=== PATIENT | female | born 1935 | race Two or more races ===

== ENCOUNTER 2020-10-04 09:09 | Outpatient (REF) | payer OTHER, SELFPAY ==
[2020-10-04 10:13] LABS: MANUAL DIFF FLAG NO
[2020-10-04 10:37] LABS: Basophils Percent Auto 0.4 % (0-2); Eosinophils Absolute Auto 0.1 X10*3/uL (0.0-0.4); Eosinophils Percent Auto 1.4 % (0-4); Hematocrit 44.3 % (37-47); Hemoglobin 14.5 g/dl (12.0-16.0); Imm Gran Abs Auto 0.04 X10*3/uL (0.00-0.03); Imm Gran Pct Auto 0.4 % (0.0-0.4); Lymphocytes Absolute Auto 1.9 X10*3/uL (1.2-4.9); Mean Corpuscular HGB Conc 32.7 g/dl (31.0-35.0); Mean Corpuscular Hemoglobin 28.1 pg (27.0-33.0); Mean Corpuscular Volume 85.9 fL (80-98); Mean Platelet Volume 9.4 fL (9.4-12.3); Monocytes Absolute Auto 0.7 X10*3/uL (0.1-1.2); Monocytes Percent Auto 7.9 % (2-11); Neutrophils Absolute Auto 6.6 X10*3/uL (2.0-8.3); Neutrophils Percent Auto 69.9 % (45-73); Platelet Count 367 X10*3/uL (160-400); Red Blood Count 5.16 X10*6/uL (4.20-5.50); Red Cell Distribution Width 13.2 % (11.0-16.0); White Blood Count 9.4 X10*3/uL (4.8-10.8)
[2020-10-04 10:49] LABS: Anion Gap 13 (12-20); Blood Urea Nitrogen 7 mg/dL (9-16); Calcium 9.3 mg/dL (8.4-10.2); Carbon Dioxide 30 mmol/L (22-29); Chloride 96 mmol/L (96-108); Cholesterol 167 mg/dL; Estimated Glomerular Filt Rate > 60; Glucose Fasting 104 mg/dL (60-99); HDL Cholesterol 77 mg/dL; LDL Cholesterol Calculated 75 mg/dl; Potassium 4.3 mmol/l (3.3-5.1); Sodium 135 mmol/L (135-145); Triglycerides 77 mg/dL
[2020-10-04 14:06] LABS: Reflex LDLD? No
== END 2020-10-04 09:10 | disposition home or self-care (01) ==
LOC: HO.LAB 09:09
PROVIDERS: Visit Provider Nurse Practitioner Family
DX: F41.9 Anxiety disorder, unspecified (principal)
CPT/HCPCS: 36415; 80048; 80061; 85025

== ENCOUNTER 2021-07-23 10:39 | Outpatient (REF) | payer OTHER, SELFPAY ==
[2021-07-23 11:36] LABS: Hematocrit 41.8 % (37-47); Hemoglobin 13.5 g/dl (12.0-16.0); Mean Corpuscular HGB Conc 32.3 g/dl (31.0-35.0); Mean Corpuscular Hemoglobin 27.4 pg (27.0-33.0); Mean Platelet Volume 9.7 fL (9.4-12.3); Platelet Count 326 X10*3/uL (160-400); Red Blood Count 4.92 X10*6/uL (4.20-5.50); Red Cell Distribution Width 12.7 % (11.0-16.0); White Blood Count 8.5 X10*3/uL (4.8-10.8)
[2021-07-23 12:01] LABS: Alanine Aminotransferase 21 U/L (0-31); Albumin Level 4.2 g/dL (3.5-5.0); Alkaline Phosphatase 154 U/L (39-117); Anion Gap 12 (12-20); Aspartate Amino Transferase 23 U/L (5-31); Bilirubin Total 0.4 mg/dL (0.0-1.0); Blood Urea Nitrogen 6 mg/dL (9-16); Calcium 9.6 mg/dL (8.4-10.2); Carbon Dioxide 30 mmol/L (22-29); Chloride 99 mmol/L (96-108); Cholesterol 144 mg/dL; Estimated Glomerular Filt Rate > 60; Glucose Fasting 125 mg/dL (60-99); HDL Cholesterol 66 mg/dL; LDL Cholesterol Calculated 67 mg/dl; Potassium 4.7 mmol/L (3.3-5.1); Sodium 136 mmol/L (135-145); Total Protein 7.9 g/dL (6.5-8.0); Triglycerides 55 mg/dL
[2021-07-23 12:02] LABS: B Type Natriuretic Peptide 51 pg/mL (<100)
[2021-07-23 12:21] LABS: TSH reflex Free T4 0.75 uIU/mL (0.32-4.0)
== END 2021-07-23 10:40 | disposition home or self-care (01) ==
LOC: HO.LAB 10:39
PROVIDERS: Visit Provider Nurse Practitioner Family
DX: F32.9 Major depressive disorder, single episode, unspecified (principal); E78.00 Pure hypercholesterolemia, unspecified; F41.9 Anxiety disorder, unspecified; I15.8 Other secondary hypertension; R60.0 Localized edema
CPT/HCPCS: 36415; 80053; 80061; 83880; 84443; 85027

== ENCOUNTER 2022-07-16 10:17 | Outpatient (REF) | payer OTHER, SELFPAY ==
--- NOTE | ~2022-07-16 | MR_ITS ---
EXAMINATION: MRI OF THE BRAIN WITHOUT CONTRAST CLINICAL INFORMATION: 87-year-old with mental status changes. Unspecified mental disorder due to known physiologic condition. COMPARISON: None TECHNIQUE: Multiplanar multisequence MR imaging of the brain was done without IV contrast. FINDINGS: BRAIN VOLUME: There is mild generalized diffuse brain parenchymal volume loss. Suspect disproportionate left hippocampal and entorhinal cortex volume loss within the limitations of a qualitative assessment. This can be further assessed with quantitative brain volumetrics if clinically warranted. STRUCTURAL: No malformations. BRAIN AND MENINGES: DWI sequence demonstrates no restricted diffusion to suggest acute or subacute cerebral ischemia. Extensive confluent subcortical and deeper periventricular white matter T2 hyperintensity noted which is mildly T1 hypointense in both cerebral hemispheres with scattered smaller patchy foci of FLAIR/T2 hyperintensity in the subcortical and deeper white matter of both cerebral hemispheres, suggesting subcortical arteriosclerotic encephalopathy. Patchy T2 hyperintensity seen on both sides of the caty consistent with chronic ischemic microangiopathy. Gradient refocused imaging demonstrates no abnormal magnetic susceptibility artifact to suggest hemorrhage, hemosiderin staining or abnormal mineralization. No extra-axial fluid collections, significant space-occupying process or mass effect. VENTRICLES AND SUBARACHNOID SPACES: The ventricular system and subarachnoid spaces are consistent with volume loss without hydrocephalus. ORBITAL STRUCTURES: The visualized orbital structures are grossly unremarkable within the limitations of the study. VASCULAR: Signal voids are noted in the visualized major intracranial vessels. OSSEOUS STRUCTURES, SINUSES/MASTOIDS, EXTRACRANIAL SOFT TISSUES: Nonspecific retained secretions are seen in the mastoids bilaterally left more than right, with mild mucosal thickening in the left maxillary sinus and ethmoid complex. Bony structures appear grossly intact. 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 There is mild anterolisthesis at C3-C4 and C4-C5. MR/MR head/brain wo con IMPRESSION: 1. Mild generalized diffuse brain parenchymal volume loss with suggestion of disproportionate left mesial temporal lobe volume loss which can be confirmed with quantitative brain volumetrics if clinically warranted. 2. 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 3. Small mastoid effusions, left more than right and some mucosal thickening in the left maxillary sinus and ethmoid complex. 4. Upper cervical degenerative changes as discussed above and bilateral TMJ arthropathy.
== END 2022-07-16 10:18 | disposition home or self-care (01) ==
LOC: HO.MRI 10:17
PROVIDERS: Visit Provider Psychiatry & Neurology Neurology
DX: F09 Unspecified mental disorder due to known physiological condition (principal); R26.9 Unspecified abnormalities of gait and mobility
CPT/HCPCS: 70551

== ENCOUNTER 2023-05-29 08:29 | Outpatient (AMB) | payer MEDICARE, SELFPAY ==
--- NOTE | 2023-05-29 08:38 | A.OFFPC_ITS ---
Vital Signs 05/29/23 08:40 Height 5 ft 2 in Weight 161 lb 2 oz BMI 29.5 BP 122/68 Blood Pressure Location Lt brachial Position Sitting Pulse 67 Pulse Source Pulse Oximeter Pulse Oximetry (%) 97 Oxygen Delivery Method Room Air Intake Visit Reasons: pe Intake Note: Patient is here today for a physical. Court Recorder Required: Yes Court Recorder Language: Credit Risk Modeler Name: Niya (grand daughter) Information Interpreted: non-clinical & clinical Ada Accommodation Consultant: Present Accompanied by: Grand Child Allergies aspirin Allergy (Intermediate, Verified 05/29/23 08:39) itchy dog dander Allergy (Unknown, Verified 05/29/23 08:39) unknown penicillin G Allergy (Unknown, Verified 05/29/23 08:39) Unknown Seasonale Allergy (Unknown, Uncoded 05/29/23 08:39) Unknown Medication List - Last Reconciled 05/29/23 by Cheikh Coyne MD atorvastatin 10 mg PO DAILY buspirone 10 mg PO BID diphenhydramine HCl 25 mg PO DAILY 30 days lisinopril 10 mg PO DAILY lorazepam 1 mg PO DAILY PRN 14 days erfnvtjjthnu-hnbdxapp-yjeuhc 1 tab PO DAILY 2 months propranolol 10 mg PO BID sertraline 25 mg PO DAILY Tobacco use date assessed: 05/29/23 Fall risk assessment: No Falls in past year Last assessed Fall Risk: 05/29/23 Dental Screening Dental Screen Date: 05/29/23 HPI pe HPI Details 88-year-old female presents to the office for a physical exam. She is accompanied by her granddaughter. Granddaughter is translating. Patient continues to have gait issues. She still insists on walking without any assistance or using a cane. She has not had any fall in the last year. However there have been near falls. She is compliant with all medications and reporting no side effects. [facility] Medical History (Updated 05/29/23 @ 09:11 by Cheikh Coyne MD) Anxiety Depression High cholesterol Hypertension Surgical History History of hysterectomy Family History Father No problems noted. Mother No problems noted. Brother No problems noted. Family/Other Mental health disorder Social History Housing: House Alcohol intake: never Patient Tobacco Use Status: Never used Tobacco e-Cigarette/Vaping Use: Never Used Second Hand Smoke Exposure: No service: No Current occupational status: retired Cognitive needs: No Hearing needs: Yes (hearing aide) Vision needs: Yes Questionnaire Thrive Questionnaire Date Thrive assessed: 03/20/23 BARON-7 AMB Questionnaire BARON-7 Date BARON - 7 assessed: 03/20/23 Source: Developed by Drs. Price Tanner, Alma Esquivel, Sukhjinder Clark and colleagues, with an educational bettie from [employer]. Physical exam (Primary Care) Vital Signs: Last Vital Signs Pulse 67 05/29/23 08:40 BP 122/68 05/29/23 08:40 Pulse Ox 97 05/29/23 08:40 Oxygen Delivery Method Room Air 05/29/23 08:40 Care Plan Goal for BP management: Blood pressure is in range. BMI result Body Mass Index 29.5 Tobacco/Smoking Status: Tobacco use Status Tobacco use date assessed 05/29/23 05/29/23 08:46 Patient Tobacco Use Status Never used Tobacco 05/29/23 08:46 e-Cigarette/Vaping Use Never Used 05/29/23 08:46 Thrive Assessment: Date of Thrive Assessment Date Thrive assessed 03/20/23 05/29/23 08:46 Advance Care Planning discussion: Exists, not on file Date of discussion: 05/29/23 Who was present: Patient's granddaughter Sanna. Forms completed: Health Care Proxy and MOLST Time spent: 1-15 minutes, not on file Actual minutes spent: 5 Const General: cooperative, healthy appearing and comfortable HENMT Head: Yes normal to inspection and Yes atraumatic Eyes General: appearance normal, both eyes and all related structures Neck Neck: Yes normal visual inspection and Yes full ROM Chest Chest palpation & inspection: normal inspection of the chest Resp Effort & Inspection: normal respiratory effort Auscultation: clear to auscultation bilaterally Cardio Jugular venous distension: no JVD Palpation: normal PMI Rate: regular rate Heart sounds: S1 normal heart sound present and S2 normal heart sound present GI Palpation (GI): Soft to palpation and No hepatosplenomegaly present Extrem General: Yes normal to inspection and Yes full ROM Assessment and Plan Assessment & Plan (1) Gait disturbance: Comment: multifactorial Code(s): R26.9 - Unspecified abnormalities of gait and mobility (2) Anxiety: Code(s): F41.9 - Anxiety disorder, unspecified Plan: Condition is stable. Continue current medications. (3) Hypertension: Code(s): I10 - Essential (primary) hypertension Qualifiers: Hypertension type: other secondary hypertension Qualified Code(s): I15.8 - Other secondary hypertension Plan: Pressure is stable. Continue medications. (4) High cholesterol: Code(s): E78.00 - Pure hypercholesterolemia, unspecified Plan: Blood work has been drawn. Will call with results. (5) Annual physical exam: Code(s): Z00.00 - Encounter for general adult medical examination without abnormal findings Orders: Orders Basic Metabolic Panel Today E78.00 - Pure hypercholesterolemia, unspecified, F41.9 - Anxiety disorder, unspecified, I10 - Essential (primary) hypertension, R26.9 - Unspecified abnormalities of gait and mobility Lipid Panel Today E78.00 - Pure hypercholesterolemia, unspecified, F41.9 - Anxiety disorder, unspecified, I10 - Essential (primary) hypertension, R26.9 - Unspecified abnormalities of gait and mobility Liver Panel Today E78.00 - Pure hypercholesterolemia, unspecified, F41.9 - Anxie ty disorder, unspecified, I10 - Essential (primary) hypertension, R26.9 - Unspecified abnormalities of gait and mobility Thyroid Stimulating Hormone Today E78.00 - Pure hypercholesterolemia, unspecified, F41.9 - Anxiety disorder, unspecified, I10 - Essential (primary) hypertension, R26.9 - Unspecified abnormalities of gait and mobility Complete Blood Count no Diff Today E78.00 - Pure hypercholesterolemia, unspecified, F41.9 - Anxiety disorder, unspecified, I10 - Essential (primary) hypertension, R26.9 - Unspecified abnormalities of gait and mobility UA and rflx microscopic Today E78.00 - Pure hypercholesterolemia, unspecified, F41.9 - Anxiety disorder, unspecified, I10 - Essential (primary) hypertension, R26.9 - Unspecified abnormalities of gait and mobility Coding Level of Care Code Est Pt Prev Care >65y(09392) Diagnoses Gait disturbance R26.9 Anxiety F41.9 Hypertension I15.8 Hypertension type: other secondary hypertension High cholesterol E78.00 Annual physical exam Z00.00 Additional Codes Vital Signs *Quality* - Advance Care Planning discussion: Exists, not on file ([id number]) Vital Signs *Quality* - Time spent: 1-15 minutes, not on file ([id number])
[2023-05-29 08:40] VITALS: BP 122/68; PULSE 67; O2SAT 97; BMI 29.5
== END 2023-05-29 09:02 | disposition home or self-care (01) ==
PROVIDERS: PCP Internal Medicine; Visit Provider Internal Medicine
DX: R26.9 Unspecified abnormalities of gait and mobility (principal); F41.9 Anxiety disorder, unspecified; I15.8 Other secondary hypertension; E78.00 Pure hypercholesterolemia, unspecified; Z00.00 Encounter for general adult medical examination without abnormal findings
CPT/HCPCS: 1123F; 1124F; 99397

== ENCOUNTER 2023-05-29 09:21 | Outpatient (REF) | payer OTHER, MEDICARE, MEDICAID, SELFPAY ==
[2023-05-29 10:22] LABS: Hematocrit 41.3 % (37.0-47.0); Hemoglobin 13.4 g/dl (12.0-16.0); Mean Corpuscular HGB Conc 32.4 g/dl (31.0-35.0); Mean Corpuscular Hemoglobin 27.3 pg (27.0-33.0); Mean Corpuscular Volume 84.1 fL (80.0-98.0); Mean Platelet Volume 9.8 fL (9.4-12.3); Platelet Count 265 X10*3/uL (160-400); Red Blood Count 4.91 X10*6/uL (4.20-5.50); Red Cell Distribution Width 12.9 % (11.0-16.0); White Blood Count 8.2 X10*3/uL (4.8-10.8)
[2023-05-29 10:47] LABS: Alanine Aminotransferase 21 U/L (0-31); Albumin Level 4.2 g/dL (3.5-5.0); Alkaline Phosphatase 137 U/L (39-117); Anion Gap 11 (12-20); Aspartate Amino Transferase 26 U/L (5-31); Bilirubin Direct 0.3 mg/dL (0.0-0.5); Bilirubin Total 0.6 mg/dL (0.0-1.0); Blood Urea Nitrogen 12 mg/dL (9-16); Calcium 10.1 mg/dL (8.4-10.2); Carbon Dioxide 31 mmol/L (22-29); Chloride 99 mmol/L (96-108); Cholesterol 141 mg/dL; Estimated Glomerular Filt Rate > 60; Glucose Random 99 mg/dL (60-115); HDL Cholesterol 74 mg/dL; LDL Cholesterol Calculated 55 mg/dl; Potassium 4.6 mmol/L (3.3-5.1); Sodium 136 mmol/L (135-145); Total Protein 8.2 g/dL (6.5-8.0); Triglycerides 61 mg/dL
[2023-05-29 10:54] LABS: Appearance Urine Clear; Color Urine Yellow; Glucose Urine UA Negative (Negative); Leukocyte Esterase Urine Large (3+) (Negative); Nitrite Urine Negative (Negative); UMIC TRIGGER UA YES; Urine Blood Small (1+) (Negative); Urine Ketones Negative (Negative); Urine Protein Negative (Neg-Trace)
[2023-05-29 10:57] LABS: Bacteria Urine None Seen (None Seen); Hyaline Casts Urine 0-2 /LPF (0-2)
[2023-05-29 11:05] LABS: Thyroid Stimulating Hormone 0.72 uIU/mL (0.32-4.0)
== END 2023-05-29 09:22 | disposition home or self-care (01) ==
LOC: HO.LAB 09:21
PROVIDERS: PCP Internal Medicine; Visit Provider Internal Medicine
DX: E78.00 Pure hypercholesterolemia, unspecified (principal); F41.9 Anxiety disorder, unspecified; I10 Essential (primary) hypertension; R26.9 Unspecified abnormalities of gait and mobility
CPT/HCPCS: 36415; 80048; 80061; 80076; 81001; 84443; 85027

== ENCOUNTER 2023-08-14 08:09 | Outpatient (AMB) | payer MEDICARE, MEDICAID, SELFPAY ==
[2023-08-14 08:10] VITALS: BP 154/82; PULSE 66; O2SAT 98; BMI 30.5
--- NOTE | 2023-08-14 08:10 | A.OFFPC_ITS ---
Vital Signs 08/14/23 08:10 Height 5 ft 2 in Weight 167 lb BMI 30.5 BP 154/82 H Blood Pressure Location Lt brachial Position Sitting Pulse 66 Pulse Source Pulse Oximeter Pulse Oximetry (%) 98 Oxygen Delivery Method Room Air Intake Visit Reasons: Anxiety follow-up, Cough, SOB Allergies aspirin Allergy (Intermediate, Verified 08/14/23 08:39) itchy dog dander Allergy (Unknown, Verified 08/14/23 08:39) unknown penicillin G Allergy (Unknown, Verified 08/14/23 08:39) Unknown Seasonale Allergy (Unknown, Uncoded 08/14/23 08:39) Unknown Medication List - Last Reconciled 08/14/23 by Cheikh Coyne MD atorvastatin 10 mg PO DAILY buspirone 10 mg PO BID diphenhydramine HCl 25 mg PO DAILY 30 days lisinopril 10 mg PO DAILY lorazepam 1 mg PO DAILY PRN 14 days mieghyvadfkf-ykrqynff-rbdwbk 1 tab PO DAILY 2 months propranolol 10 mg PO BID sertraline 25 mg PO DAILY Tobacco use date assessed: 07/31/23 Fall risk assessment: No Falls in past year Last assessed Fall Risk: 08/14/23 Dental Screening Dental Screen Date: 08/14/23 Did you have a dental visit in the last 12 months?: No Did you have a dental problem in the last 6 months where you did not have access to dental care?: No Was dental information given to patient?: No HPI Anxiety follow-up HPI Details 88-year-old female presents to the offic e to discuss her chronic medical conditions. She is accompanied by a family member. The family member reports that the patient has been coughing and bringing up yellow to green sputum. She is also having some shortness of breath in the past few days. No fevers or chills. No nausea or vomiting. Continues to have some anxiety issues. Patient has baseline dementia. Able to function and do activities of daily living. Patient needs to be reminded regarding showers. She is continent to urine and feces. Able to dress on her own. She she is able to cook and put on the gas stove independently. No history of falls. [facility] Medical History (Updated 08/14/23 @ 08:43 by Cheikh Coyne MD) Anxiety High cholesterol Hypertension Depression Surgical History History of hysterectomy Family History Father No problems noted. Mother No problems noted. Brother No problems noted. Family/Other Mental health disorder Social History Housing: House Alcohol intake: never Patient Tobacco Use Status: Never used Tobacco e-Cigarette/Vaping Use: Never Used Second Hand Smoke Exposure: No service: No Current occupational status: retired Cognitive needs: No Hearing needs: Yes (hearing aide) Vision needs: Yes Questionnaire PHQ-9 Over the last 2 weeks, how often have you been bothered by any of the following problems? 1. Little interest or pleasure in doing things: not at all 2. Feeling down, depressed, or hopeless: not at all 3. Trouble falling or staying asleep, or sleeping too much: not at all 4. Feeling tired or having little energy: not at all 5. Poor appetite or overeating: not at all 6. Feeling bad about yourself - or that you are a failure or have let yourself or your family down: not at all 7. Trouble concentrating on things, such as reading the newspaper or watching television: not at all 8. Moving or speaking so slowly that other people could have noticed. Or the opposite - being so fidgety or restless that you have been moving around a lot more than usual: not at all 9. Thoughts that you would be better off or of hurting yourself in some way: not at all Total score: 0 Depression Screening Interpretation: Negative Depression Screening Done: Yes Source: Developed by Drs. Price Tanner, Sukhjinder Gaona and colleagues, with an educational bettie from [employer]. Thrive Questionnaire Date Thrive assessed: 03/20/23 AUDIT C Alcohol Use Questionnaire (AUDIT-C) 1. How often do you have a drink containing alcohol?: Never Total Score: 0 BARON-7 AMB Questionnaire BARON-7 Date BARON - 7 assessed: 03/20/23 Source: Developed by Drs. Price Tanner, Alma Esquivel, Sukhjinder Clark and colleagues, with an educational bettie from [employer]. Physical exam (Primary Care) Vital Signs: Last Vital Signs Pulse 66 08/14/23 08:10 BP 154/82 H 08/14/23 08:10 Pulse Ox 98 08/14/23 08:10 Oxygen Delivery Method Room Air 08/14/23 08:10 BMI result Body Mass Index 30.5 Tobacco/Smoking Status: Tobacco use Status Tobacco use date assessed 07/31/23 08/14/23 08:19 Patient Tobacco Use Status Never used Tobacco 08/14/23 08:19 e-Cigarette/Vaping Use Never Used 08/14/23 08:19 PHQ-9: PHQ-9 Score PHQ-9: Total score 0 08/14/23 08:19 Depression Screening Interpretation: Negative Thrive Assessment: Date of Thrive Assessment Date Thrive assessed 03/20/23 08/14/23 08:19 Const Other: Alert and oriented x3. Patient is oriented to day month and year.. General: cooperative and healthy appearing Nutritional Appearance: well nourished Orientation/consciousness: patient oriented x3 Limitations: no limitations HENMT Head: Yes normal to inspection Eyes General: appearance normal, both eyes and all related structures Neck Neck: Yes normal visual inspection Chest Chest palpation & inspection: normal palpation of entire chest wall Resp Effort & Inspection: normal respiratory effort Neuro General: patient oriented x3 Assessment and Plan Assessment & Plan (1) Acute bronchitis: Code(s): J20.9 - Acute bronchitis, unspecified Plan: Azithromycin called in. If symptoms do not improve to follow-up here. (2) Cognitive disorder: Code(s): F09 - Unspecified mental disorder due to known physiological condition Plan: Condition is stable Coding Level of Care Code Est Pt Level 4 (00411) Diagnoses Acute bronchitis J20.9 Cognitive disorder F09
== END 2023-08-14 08:39 | disposition home or self-care (01) ==
PROVIDERS: PCP Internal Medicine; Visit Provider Internal Medicine
DX: J20.9 Acute bronchitis, unspecified (principal); F09 Unspecified mental disorder due to known physiological condition
CPT/HCPCS: 99214

== ENCOUNTER 2023-10-17 12:20 | Emergency (ER) | payer MEDICARE, SELFPAY ==
[2023-10-17 13:40] VITALS: BP 231/87; PULSE 76; RESP 16; TEMP 36.3; O2SAT 96; BMI 28.0
--- NOTE | 2023-10-17 13:40 | ED_ITS ---
HPI - General Adult General Chief complaint: Recheck/Abnormal Lab/Rx Stated complaint: Poor Circulation in Feet High Blood Pressure Time Seen by Provider: 10/17/23 16:39 History of Present Illness HPI narrative: The patient is an 88-year-old woman who lives at home with her and other family members. She has history of hypertension for which she is on lisinopril 10 mg daily. She also takes propranolol 10 mg b.i.d.. Other medications include sertraline, buspirone, and atorvastatin. Apparently visiting nurse comes every morning. The visiting nurse this morning arrived at around 10:00 and checked her blood pressure and found that it was quite high. Additionally the nurse was concerned that the feet were discolored. She advised the family to bring her to the hospital. The patient herself had no complaints and had apparently been up and about and had made herself breakfast this morning. The patient denies headache, chest pain, abdominal pain, nausea, vomiting, shortness of breath, cough, sputum. She says that she took her normal medications this morning. Related Data Previous Rx's Medication Instructions Recorded lorazepam 1 mg tablet 1 mg PO DAILY PRN agitation 14 05/24/22 days #14 tabs yxawinmnskre-gjhrmkyx-krlugo tablet 1 tab PO DAILY 2 months #60 tabs 08/06/23 atorvastatin 10 mg tablet 10 mg PO DAILY #90 tabs 08/14/23 azithromycin 250 mg tablet See Rx Instructions PO .COMPLEX #6 08/14/23 tabs lisinopril 10 mg tablet 10 mg PO DAILY #90 tabs 08/14/23 propranolol 10 mg tablet 10 mg PO BID #180 tabs 08/14/23 buspirone 10 mg tablet 10 mg PO BID #60 tabs 09/26/23 diphenhydramine HCl 25 mg tablet 25 mg PO DAILY 30 days #30 tabs 09/26/23 sertraline 50 mg tablet 50 mg PO DAILY #30 tabs 09/26/23 Allergies Allergy/AdvReac Type Severity Reaction Status Date / Time aspirin Allergy Intermediate itchy Verified 10/17/23 13:46 dog dander Allergy Unknown unknown Verified 10/17/23 13:46 penicillin G Allergy Unknown Unknown Verified 10/17/23 13:46 Seasonale Allergy Unknown Unknown Uncoded 10/17/23 13:46 Review of Systems 2 Review of Systems: Yes all other systems are reviewed and are negative PMFSH Past Medical History Medical History (Updated 10/17/23 @ 17:41 by Camilo Collins MD) Anxiety High cholesterol Hypertension Depression Surgical History History of hysterectomy Family History Family History Father No problems noted. Mother No problems noted. Brother No problems noted. Family/Other Mental health disorder Social History Social History Housing: House Alcohol intake: never Patient Tobacco Use Status: Never used Tobacco Smoked in Last 30 Days: No e-Cigarette/Vaping Use: Never Used Second Hand Smoke Exposure: No Use of substances other than those prescribed or required for medical reasons: No Advance Directives: Yes Advance Directives Information Provided: No Advance Directives on File: No service: No Current occupational status: retired Cognitive needs: No Hearing needs: Yes (hearing aide) Vision needs: Yes Physical Exam ED Vital Signs: Vital Signs - 24 hr 10/17/23 13:40 10/17/23 16:51 10/17/23 17:39 Temperature 97.3 F 98.7 F Pulse Rate 76 71 72 Respiratory Rate 16 20 16 Blood Pressure 231/87 H 238/85 H 176/68 H Pulse Oximetry 96 96 96 Oxygen Delivery Method Room Air Room Air Room Air BMI result Body Mass Index 28.0 Const Other: The patient is awake, alert, pleasant, cooperative. She does not appear ill or uncomfortable. HENMT Other: Face is symmetrical. Mucous membranes moist. Tongue midline. Eyes Other: Pupils are round equal, conjunctivae are clear, extraocular movements intact. Neck Other: No JVD Resp Other: Lungs are clear. No signs of respiratory difficulty or distress. Cardio Other: The patient is a regular rate and rhythm with no murmur GI Other: Abdomen is soft and nontender Skin Other: Skin is dry and unremarkable. Particularly the skin of the feet is normal and unremarkable. Neuro Other: The patient is awake and alert. Speech is at baseline. Face is symmetrical. Moves all 4 extremities symmetrically. No focal findings. Extrem Other: Good perfusion to both feet. No edema. Course Course Course Narrative: This is a rapid medical exam: Additional HPI, ROS, PE not included below will be deferred to primary provider. Patient is an 88-year-old female with history of HTN, high cholesterol, depression and anxiety, cognitive disorder, anomic aphasia presenting to the ED with report of bilateral foot swelling and purple discoloration as well as elevated BP readings. Family states patient was referred to the ED by her visiting nurses. Mild pitting edema noted in triage, 2+ DP and PT pulses bilat. Hypertensive in triage. Plan: EKG, labs Medications Administered Discontinued Medications Generic Name Dose Route Start Last Admin Trade Name Singh PRN Reason Stop Dose Admin Clonidine HCl 0.1 mg 10/17/23 16:51 10/17/23 17:00 Clonidine Hcl 0.1 Mg Tablet PO 10/17/23 16:52 0.1 mg ONCE ONE Administration Protocol Lisinopril 10 mg 10/17/23 16:51 10/17/23 17:00 Lisinopril 10 Mg Tablet PO 10/17/23 16:52 10 mg ONCE ONE Administration Protocol Medical Decision Making Medical Decision Making [facility] Narrative: The patient is an 88-year-old woman who lives with her and other family members in her own home. She has visiting nurses every day. She was hypertensive today. There was also some concern about her feet. Here in the emergency room her feet look fine and are well perfused. She was hypertensive however with a systolic of 234. The patient normally takes 10 mg of lisinopril daily and 10 mg of propranolol twice a day. She was given an additional 10 mg of lisinopril and also 0.1 mg of clonidine. Her blood pressure came down to 176/68. She was asymptomatic initially and remained asymptomatic. She was very eager to go home. Labs are unremarkable. EKG is unremarkable. She will be discharged to have her blood pressure monitored at home and to follow-up with her PCP. Lab Data 10/17/23 14:02 10/17/23 14:02 Labs: Lab Results 10/17/23 Range/Units 14:02 WBC 8.6 (4.8-10.8) X10*3/uL RBC 5.18 (4.20-5.50) X10*6/uL Hgb 14.1 (12.0-16.0) g/dl Hct 42.9 (37.0-47.0) % MCV 82.8 (80.0-98.0) fL MCH 27.2 (27.0-33.0) pg MCHC 32.9 (31.0-35.0) g/dl RDW 12.9 (11.0-16.0) % Plt Count 244 (160-400) X10*3/uL MPV 9.3 L (9.4-12.3) fL Immature Gran % (Auto) 0.3 (0.0-0.4) % Neut % (Auto) 71.5 (45-73) % Lymph % (Auto) 19.6 L (20-40) % Creek % (Auto) 6.9 (2-11) % Eos % (Auto) 1.2 (0-4) % Baso % (Auto) 0.5 (0-2) % Lymph # (Auto) 1.7 (1.2-4.9) X10*3/uL Creek # (Auto) 0.6 (0.1-1.2) X10*3/uL Eos # (Auto) 0.1 (0.0-0.4) X10*3/uL Baso # (Auto) 0.0 (0.0-0.2) X10*3/uL Abs Immat Gran (auto) 0.03 (0.00-0.03) X10*3/uL Absolute Neuts (auto) 6.2 (2.0-8.3) x10*3/uL Absolute Nucleated RBC 0.000 (0.0-0.012) X10*3/uL Nucleated RBC % (auto) 0.0 (0.0-0.2) /100WBC Sodium 135 (135-145) mmol/L Potassium 4.2 (3.3-5.1) mmol/L Chloride 98 (96-108) mmol/L Carbon Dioxide 28 (22-29) mmol/L Anion Gap 13 (12-20) BUN 9 (9-16) mg/dL Creatinine 0.69 (0.5-1.4) mg/dL Estim Creat Clear Calc 58.7 Estimated GFR > 60 Random Glucose 111 (60-115) mg/dL Calcium 9.5 (8.4-10.2) mg/dL Troponin I High Sens < 2.7 (<3.5-17.0) ng/L B-Natriuretic Peptide 101 H (<100) pg/mL Independent Interpretation Interpretation: EKG at 1358 shows normal sinus rhythm at 70 beats per minute. It is a normal EKG Discharge Plan Discharge Clinical Impression: Hypertension Patient Disposition: Home, Self-Care Additional Instructions: Her blood pressure was high today but she did not seem to have any symptoms associated with high blood pressure. I would not change her blood pressure medications on this basis alone. She will need to be watched to see if she continues to have significantly elevated blood pressures. If that is the case she will likely need more blood pressure medications. Please make sure that she takes her regular medications when she gets home both this evening and tomorrow morning. Please plan on having her follow-up with her regular doctor. Return to the emergency room if the significantly worse. Prescriptions: No Action lorazepam 1 mg tablet 1 mg PO DAILY PRN (Reason: agitation) 14 Days Qty: 14 0RF ftlnuekvznce-krysuigc-woahcs Tablet 1 tab PO DAILY 60 Days Qty: 60 0RF diphenhydramine HCl 25 mg tablet 25 mg PO DAILY 30 Days Qty: 30 0RF sertraline 50 mg tablet 50 mg PO DAILY Qty: 30 0RF buspirone 10 mg tablet 10 mg PO BID Qty: 60 0RF atorvastatin 10 mg tablet 10 mg PO DAILY Qty: 90 1RF lisinopril 10 mg tablet 10 mg PO DAILY Qty: 90 1RF propranolol 10 mg tablet 10 mg PO BID Qty: 180 1RF azithromycin 250 mg tablet See Rx Instructions PO .COMPLEX Qty: 6 0RF Rx Instructions: take 500 mg today (day 1), then 250 mg for 4 days (days 2-5) PO Referrals: Cheikh Coyne MD [Primary Care Provider] - (Hypertension) Interventions: ED Discharge Assessment Last Done: 10/17/23 17:54 Discharge Date/Time: 10/17/23 17:55
--- NOTE | 2023-10-17 13:45 | ECG_ITS ---
Test Reason : high bp Blood Pressure : / mmHG Vent. Rate : 070 BPM Atrial Rate : 070 BPM P-R Int : 152 ms QRS Dur : 084 ms QT Int : 370 ms P-R-T Axes : 068 025 031 degrees QTc Int : 399 ms Normal sinus rhythm Normal ECG No previous ECGs available Referred By: Miranda Joyce Electronically Signed By:SHAWN BROWN
[2023-10-17 14:08] LABS: MANUAL DIFF FLAG NO
[2023-10-17 14:10] LABS: Basophils Percent Auto 0.5 % (0-2); Eosinophils Absolute Auto 0.1 X10*3/uL (0.0-0.4); Eosinophils Percent Auto 1.2 % (0-4); Hematocrit 42.9 % (37.0-47.0); Hemoglobin 14.1 g/dl (12.0-16.0); Imm Gran Abs Auto 0.03 X10*3/uL (0.00-0.03); Imm Gran Pct Auto 0.3 % (0.0-0.4); Lymphocytes Absolute Auto 1.7 X10*3/uL (1.2-4.9); Lymphocytes Percent Auto 19.6 % (20-40); Mean Corpuscular HGB Conc 32.9 g/dl (31.0-35.0); Mean Corpuscular Hemoglobin 27.2 pg (27.0-33.0); Mean Corpuscular Volume 82.8 fL (80.0-98.0); Mean Platelet Volume 9.3 fL (9.4-12.3); Monocytes Absolute Auto 0.6 X10*3/uL (0.1-1.2); Monocytes Percent Auto 6.9 % (2-11); Neutrophils Absolute Auto 6.2 x10*3/uL (2.0-8.3); Neutrophils Percent Auto 71.5 % (45-73); Platelet Count 244 X10*3/uL (160-400); Red Blood Count 5.18 X10*6/uL (4.20-5.50); Red Cell Distribution Width 12.9 % (11.0-16.0); White Blood Count 8.6 X10*3/uL (4.8-10.8)
[2023-10-17 14:28] LABS: Anion Gap 13 (12-20); Blood Urea Nitrogen 9 mg/dL (9-16); Calcium 9.5 mg/dL (8.4-10.2); Carbon Dioxide 28 mmol/L (22-29); Chloride 98 mmol/L (96-108); Creatinine Clr Calc Pharmacy 58.7; Estimated Glomerular Filt Rate > 60; Glucose Random 111 mg/dL (60-115); Potassium 4.2 mmol/L (3.3-5.1); Sodium 135 mmol/L (135-145)
[2023-10-17 14:37] LABS: Troponin-I High Sensitivity < 2.7 ng/L (<3.5-17.0)
[2023-10-17 16:51] VITALS: BP 238/85; PULSE 71; RESP 20; TEMP 37.1; O2SAT 96
[2023-10-17] MEDS: cloNIDine HCL 0.1 MG TABLET PO (17:00)
[2023-10-17] MEDS: lisinopriL 10 MG TABLET PO (17:00)
--- NOTE | 2023-10-17 17:05 | PC.NURSE ---
pt a&ox4, hypertensive - asymptomatic, other vss, pt reports that she is hungry, given sandwich and samir valeria, diet order place. pt medicated per DEC.
[2023-10-17 17:31] LABS: B Type Natriuretic Peptide 101 pg/mL (<100)
[2023-10-17 17:39] VITALS: BP 176/68; PULSE 72; RESP 16; O2SAT 96
== END 2023-10-17 17:55 | disposition home or self-care (01) ==
PROVIDERS: Registered Nurse Emergency; Emergency Provider Emergency Medicine; PCP Internal Medicine
DX: I10 Essential (primary) hypertension (principal); M79.89 Other specified soft tissue disorders
CPT/HCPCS: 36415; 80048; 83880; 84484; 85025; 93005; 99283; 99284

== ENCOUNTER → 2023-10-17 13:45 | Outpatient (BNV) | payer MEDICARE, MEDICAID, SELFPAY | PROVIDERS: PCP Internal Medicine; Visit Provider Internal Medicine | DX: I10 Essential (primary) hypertension (principal) | CPT/HCPCS: 93010 ==

== ENCOUNTER 2023-10-27 11:11 | Outpatient (AMB) | payer MEDICARE, MEDICAID, SELFPAY ==
--- NOTE | 2023-10-27 12:09 | A.OFFPC_ITS ---
Vital Signs 10/27/23 12:10 Height 5 ft 2 in Weight 169 lb BMI 30.9 BP 138/83 Blood Pressure Location Lt brachial Position Sitting Pulse 63 Pulse Source Pulse Oximeter Pulse Oximetry (%) 93 Oxygen Delivery Method Room Air Intake Visit Reasons: [facility] 10/17 / High bp Intake Note: Patient is here to follow-up after a visit the emergency department at [facility] on 10/17/23 Marine Design Engineer Required: Yes Marine Design Engineer Language: Plastic Sheets Supervisor Name: Delma Anders) Information Interpreted: non-clinical & clinical Loan Broker: Present Accompanied by: Staff Allergies aspirin Allergy (Intermediate, Verified 10/27/23 17:15) itchy dog dander Allergy (Unknown, Verified 10/27/23 17:15) unknown penicillin G Allergy (Unknown, Verified 10/27/23 17:15) Unknown Seasonale Allergy (Unknown, Uncoded 10/27/23 17:15) Unknown Medication List - Last Reconciled 10/27/23 by Cheikh Coyne MD atorvastatin 10 mg PO DAILY buspirone 10 mg PO BID diphenhydramine HCl 25 mg PO DAILY 30 days lisinopril 20 mg PO DAILY lorazepam 1 mg PO DAILY PRN 14 days ovcwbgtnrgab-hzitghip-wcfzxt 1 tab PO DAILY 2 months propranolol 10 mg PO BID sertraline 50 mg PO DAILY Tobacco use date assessed: 10/27/23 Fall risk assessment: 1 Fall in past year Last assessed Fall Risk: 10/27/23 Dental Screening Dental Screen Date: 10/27/23 Did you have a dental visit in the last 12 months?: No Did you have a dental problem in the last 6 months where you did not have access to dental care?: No Was dental information given to patient?: No HPI [facility] 10/17 / High bp HPI Details 88-year-old female presents to the [facility] for a follow-up visit. Patient was seen in the emergency room for elevated blood pressure. No changes were made to the medications and was advised to follow-up with her primary care. Currently she is feeling fine with no symptoms. Continues to have blood pressures in the 160 systolic range. Able to function and do all activities of daily living. [facility] Medical History (Updated 10/18/23 @ 00:00 by Suzie Ceron) Anxiety High cholesterol Hypertension Depression Surgical History History of hysterectomy Family History Father No problems noted. Mother No problems noted. Brother No problems noted. Family/Other Mental health disorder Social History Housing: House Alcohol intake: never Patient Tobacco Use Status: Never used Tobacco e-Cigarette/Vaping Use: Never Used Second Hand Smoke Exposure: No service: No Current occupational status: retired Cognitive needs: No Hearing needs: Yes (hearing aide) Vision needs: Yes Questionnaire PHQ-9 Over the last 2 weeks, how often have you been bothered by any of the following problems? 1. Little interest or pleasure in doing things: not at all 2. Feeling down, depressed, or hopeless: not at all 3. Trouble falling or staying asleep, or sleeping too much: not at all 4. Feeling tired or having little energy: not at all 5. Poor appetite or overeating: not at all 6. Feeling bad about yourself - or that you are a failure or have let yourself or your family down: not at all 7. Trouble concentrating on things, such as reading the newspaper or watching television: not at all 8. Moving or speaking so slowly that other people could have noticed. Or the opposite - being so fidgety or restless that you have been moving around a lot more than usual: not at all 9. Thoughts that you would be better off or of hurting yourself in some way: not at all Total score: 0 Depression Screening Interpretation: Negative Depression Screening Done: Yes Source: Developed by Drs. Price Tanner, Alma Esquivel, Sukhjinder Clark and colleagues, with an educational bettie from [employer]. Thrive Questionnaire Date Thrive assessed: 10/27/23 I am a: Patient What is your living situation today?: I have a steady place to live Within the past 12 months, did the food you bought not last and you didn't have the money to get more?: Never true Within the past 12 months, did you worry whether your food would run out before you got money to buy more?: Never true Do you have trouble paying for medicines?: No Do you have trouble getting transportation to medical appointments?: No Do you have trouble paying your heating and electricity bill?: No Do you have trouble taking care of your child, family member or friend?: No Do you have trouble with day-to-day activities such as bathing, preparing meals, shopping, managing finances, etc.?: No Are you currently unemployed and looking for a job?: No Are you interested in more education?: No Currently or been in a relationship where the following occur: no concerns reported AUDIT C Alcohol Use Questionnaire (AUDIT-C) 1. How often do you have a drink containing alcohol?: Never Total Score: 0 BARON-7 AMB Questionnaire BARON-7 Date BARON - 7 assessed: 10/27/23 Feeling nervous, anxious, or on edge: 2 = More than half the days Not being able to stop or control worryin = Several days Worrying too much about different things: 1 = Several days Trouble relaxin = More than half the days Being so restless that it is hard to sit still: 0 = Not at all Becoming easily annoyed or irritable: 2 = More than half the days Feeling afraid as if something awful might happen: 0 = Not at all Total BARON-7 score (0-4 normal; 5-9 mild; 10-14 moderate; 15-21 severe): 8 Source: Developed by Drs. Price Tanner, Alma Esquivel, Sukhjinder Clark and colleagues, with an educational bettie from [employer]. Physical exam (Primary Care) Vital Signs: Last Vital Signs Pulse 63 10/27/23 12:10 BP 138/83 10/27/23 12:10 Pulse Ox 93 10/27/23 12:10 Oxygen Delivery Method Room Air 10/27/23 12:10 BMI result Body Mass Index 30.9 Tobacco/Smoking Status: Tobacco use Status Tobacco use date assessed 10/27/23 10/27/23 12:18 Patient Tobacco Use Status Never used Tobacco 10/27/23 12:18 e-Cigarette/Vaping Use Never Used 10/27/23 12:18 PHQ-9: PHQ-9 Score PHQ-9: Total score 0 10/27/23 12:18 Depression Screening Interpretation: Negative Thrive Assessment: Date of Thrive Assessment Date Thrive assessed 10/27/23 10/27/23 12:18 Currently or been in a relationship where the following occur: no concerns reported Const General: cooperative and healthy appearing Nutritional Appearance: well nourished Orientation/consciousness: patient oriented x3 Limitations: no limitations HENMT Head: Yes normal to inspection Eyes General: appearance normal, both eyes and all related structures Neck Neck: Yes normal visual inspection Chest Chest palpation & inspection: normal palpation of entire chest wall Resp Effort & Inspection: normal respiratory effort Neuro General: patient oriented x3 Assessment and Plan Assessment & Plan (1) Hypertension: Code(s): I10 - Essential (primary) hypertension Qualifiers: Hypertension type: other secondary hypertension Qualified Code(s): I15.8 - Other secondary hypertension Plan: Lisinopril dosage has been increased to 20 mg once a day. Continue other medications at same dosage. Medications: New lisinopril 20 mg PO DAILY 90 tabs 1RF Discontinued lisinopril Discontinued Reason: Doctor's Order 10 mg PO DAILY 90 tabs 1RF Coding Level of Care Code Est Pt Level 4 (22200) Diagnoses Other secondary hypertension I15.8 Hypertension type: other secondary hypertension
[2023-10-27 12:10] VITALS: BP 138/83; PULSE 63; O2SAT 93; BMI 30.9
== END 2023-10-27 13:16 | disposition home or self-care (01) ==
PROVIDERS: PCP Internal Medicine; Visit Provider Internal Medicine
DX: I15.8 Other secondary hypertension (principal)
CPT/HCPCS: 99214

== ENCOUNTER 2023-11-27 08:58 | Outpatient (AMB) | payer MEDICARE, MEDICAID, SELFPAY ==
--- NOTE | 2023-11-27 09:03 | MHC.PC.OV ---
Vital Signs 11/27/23 09:04 Height 5 ft 2 in Weight 169 lb BMI 30.9 BP 142/62 H Blood Pressure Location Lt brachial Position Sitting Pulse 65 Pulse Source Pulse Oximeter Pulse Oximetry (%) 96 Oxygen Delivery Method Room Air Intake Visit Reasons: 3mth f/u Intake Note: Patient is here to follow up on HTN, Cognitive disorder, anxiety and medication review for clonazepam. Referral for possible outpatient therapy counseling. Complaint of not hearing in both ears even with hearing aide. 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 Patient's elxkgovs-wv-jjb who is also her FUNERAL HOME DIRECTOR brings the patient for the visit. Aaykbncx-lo-nef is reporting that patient is having a lot of anger outbursts. She becomes very agitated during the evening and her blood pressure goes up. They have been recording elevated blood pressures of 180 systolic. She has been taking propranolol, Benadryl and buspirone for anxiety. These medications have not been able to control her anger outbursts. The patient is also requesting an evaluation by audiology. Her hearing aids are not working well. She also has tough toenails and would like to see a silver service waiter for trimming. Patient is requesting therapy/counseling for her anger spells. The FUNERAL HOME DIRECTOR reports that at baseline patient is alert and is able to take care of her personal hygiene. Her appetite is good. Sleep is disturbed. Patient tends to ask same questions repeatedly... [facility] Medical History (Updated 11/28/23 @ 10:29 by Cheikh Coyne MD) Dystrophic nail Anxiety High cholesterol Hypertension Depression Surgical History History of hysterectomy Family History Father No problems noted. Mother No problems noted. Brother No problems noted. Family/Other Mental health disorder Social History Housing: House Alcohol intake: never Patient Tobacco Use Status: Never used Tobacco e-Cigarette/Vaping Use: Never Used Second Hand Smoke Exposure: No service: No Current occupational status: retired Cognitive needs: No Hearing needs: Yes (hearing aide) Vision needs: Yes Questionnaire Thrive Questionnaire Date Thrive assessed: 10/27/23 Currently or been in a relationship where the following occur: no concerns reported THRIVE Score: 0 BARON-7 AMB Questionnaire BARON-7 Date BARON - 7 assessed: 11/27/23 Feeling nervous, anxious, or on edge: 3 = Nearly every day Not being able to stop or control worryin = Nearly every day Worrying too much about different things: 3 = Nearly every day Trouble relaxin = Nearly every day Being so restless that it is hard to sit still: 3 = Nearly every day Becoming easily annoyed or irritable: 3 = Nearly every day Feeling afraid as if something awful might happen: 2 = More than half the days Total BARON-7 score (0-4 normal; 5-9 mild; 10-14 moderate; 15-21 severe): 20 Source: Developed by Drs. Price Tanner, Alma Esquivel, Sukhjinder Clark and colleagues, with an educational bettie from [employer]. Physical exam (Primary Care) Vital Signs: Last Vital Signs Pulse 65 11/27/23 09:04 BP 142/62 H 11/27/23 09:04 Pulse Ox 96 11/27/23 09:04 Oxygen Delivery Method Room Air 11/27/23 09:04 Care Plan Goal for BP management: Systolic blood pressure is elevated. Lisinopril has been increased to 20 mg once a day BMI result Body Mass Index 30.9 BMI Assessment/Plan discussion: High Tobacco/Smoking Status: Tobacco use Status Tobacco use date assessed 11/27/23 11/27/23 09:15 Patient Tobacco Use Status Never used Tobacco 11/27/23 09:15 e-Cigarette/Vaping Use Never Used 11/27/23 09:15 Thrive Assessment: Date of Thrive Assessment Date Thrive assessed 10/27/23 11/27/23 09:15 Currently or been in a relationship where the following occur: no concerns reported Const General: cooperative and healthy appearing Nutritional Appearance: well nourished Orientation/consciousness: patient oriented x3 Limitations: no limitations HENMT Head: Yes normal to inspection Eyes General: appearance normal, both eyes and all related structures Neck Neck: Yes normal visual inspection Chest Chest palpation & inspection: normal palpation of entire chest wall Resp Effort & Inspection: normal respiratory effort Neuro General: patient oriented x3 Extrem Other: Thickened nails in both feet Assessment and Plan Assessment & Plan (1) Depression: Code(s): F32.9 - Major depressive disorder, single episode, unspecified Qualifiers: Depression Type: unspecified Qualified Code(s): F32.9 - Major depressive disorder, single episode, unspecified Plan: Clonazepam has been added to the regimen. Propranolol has been stopped. Therapy will be requested. (2) Hypertension: Code(s): I10 - Essential (primary) hypertension Qualifiers: Hypertension type: other secondary hypertension Qualified Code(s): I15.8 - Other secondary hypertension Plan: Systolic blood pressure is slightly elevated. I have increased the lisinopril to 20 mg once a day. Nmhkyuqu-qm-bum was advised to continue monitoring the blood pressures. (3) Dystrophic nail: Code(s): L60.3 - Nail dystrophy Plan: A podiatry consult has been requested. (4) Decreased hearing: Code(s): H91.90 - Unspecified hearing loss, unspecified ear Plan: An audiology consult has been requested. Medications: New clonazepam 0.5 mg PO DAILY 30 tabs 0RF Changed From diphenhydramine HCl 25 mg PO DAILY 30 days 30 tabs 0RF To diphenhydramine HCl 25 mg PO DAILY 90 days 90 tabs 1RF Discontinued propranolol Discontinued Reason: Doctor's Order 10 mg PO BID 180 tabs 1RF Coding Level of Care Code Est Pt Level 4 (64652) Diagnoses Depression, unspecified depression type F32.9 Depression Type: unspecified Other secondary hypertension I15.8 Hypertension type: other secondary hypertension Dystrophic nail L60.3 Decreased hearing H91.90
[2023-11-27 09:04] VITALS: BP 142/62; PULSE 65; O2SAT 96; BMI 30.9
== END 2023-11-27 09:39 | disposition home or self-care (01) ==
PROVIDERS: PCP Internal Medicine; Visit Provider Internal Medicine
DX: I15.8 Other secondary hypertension (principal); F32.9 Major depressive disorder, single episode, unspecified; L60.3 Nail dystrophy; H91.93 Unspecified hearing loss, bilateral
CPT/HCPCS: 99214

== ENCOUNTER 2024-02-19 09:13 | Outpatient (REF) | payer MEDICARE, MEDICAID, SELFPAY | END 2024-02-19 09:14 | disposition home or self-care (01) | LOC: HO.SH 09:13 | PROVIDERS: Visit Provider Internal Medicine | DX: Z01.118 Encounter for examination of ears and hearing with other abnormal findings (principal); H90.3 Sensorineural hearing loss, bilateral | CPT/HCPCS: 92557 ==

== ENCOUNTER 2024-03-11 09:42 | Outpatient (AMB) | payer MEDICARE, MEDICAID, SELFPAY ==
--- NOTE | 2024-03-11 10:03 | A.OFFPC_ITS ---
Vital Signs 03/11/24 10:04 Height 5 ft 2 in Weight 167 lb 4 oz BMI 30.6 BP 130/70 Blood Pressure Location Lt brachial Position Sitting Pulse 84 Pulse Source Pulse Oximeter Pulse Oximetry (%) 97 Oxygen Delivery Method Room Air Intake Visit Reasons: 3mth f/u Intake Note: Patient is here to follow up on HTN, Cognitive disorder . Skull Grinder Required: No Furnace Combustion Analyst: Present Accompanied by: Grand Child Allergies aspirin Allergy (Intermediate, Verified 03/11/24 10:37) itchy dog dander Allergy (Unknown, Verified 03/11/24 10:37) unknown penicillin G Allergy (Unknown, Verified 03/11/24 10:37) Unknown lisinopril Adverse Reaction (Intermediate, Verified 03/11/24 10:37) Cough Seasonale Allergy (Unknown, Uncoded 03/11/24 10:37) Unknown Medication List - Last Reconciled 03/11/24 by Cheikh Coyne MD atorvastatin 10 mg PO DAILY buspirone 10 mg PO BID clonazepam 0.5 mg PO DAILY diphenhydramine HCl 25 mg PO DAILY 90 days losartan 100 mg PO DAILY yljbaqcqomrg-wtmpfamc-qjofyd 1 tab PO DAILY 2 months sertraline 50 mg PO DAILY Tobacco use date assessed: 03/11/24 Fall risk assessment: 2 + Falls in past year Last assessed Fall Risk: 03/11/24 Dental Screening Dental Screen Date: 10/27/23 HPI 3mth f/u HPI Details 89-year-old female presents to the offic e to discuss her chronic medical conditions. Her granddaughter and SOFTWARE APPLICATION TESTER is present. Patient lives with her son who has to leave her alone in the house over the weekend to do errands. Patient becomes agitated, has had a few falls when she is alone. The family is requesting a caregiver for the weekend. Her blood pressures were elevated and recently her blood pressure medication dosage was increased. Patient tolerated the increase in medication well. Compliant with medications, reporting no side effects. Appetite is normal. [facility] Medical History (Updated 11/28/23 @ 10:29 by Cheikh Coyne MD) Dystrophic nail Anxiety High cholesterol Hypertension Depression Surgical History History of hysterectomy Family History Father No problems noted. Mother No problems noted. Brother No problems noted. Family/Other Mental health disorder Social History Housing: House Alcohol intake: never Patient Tobacco Use Status: Never used Tobacco e-Cigarette/Vaping Use: Never Used Second Hand Smoke Exposure: No service: No Current occupational status: retired Cognitive needs: No Hearing needs: Yes (hearing aide) Vision needs: Yes Questionnaire Thrive Questionnaire Date Thrive assessed: 10/27/23 BARON-7 AMB Questionnaire BARON-7 Date BARON - 7 assessed: 03/11/24 Feeling nervous, anxious, or on edge: 3 = Nearly every day Not being able to stop or control worryin = Nearly every day Worrying too much about different things: 3 = Nearly every day Trouble relaxin = Nearly every day Being so restless that it is hard to sit still: 3 = Nearly every day Becoming easily annoyed or irritable: 3 = Nearly every day Feeling afraid as if something awful might happen: 3 = Nearly every day Total BARON-7 score (0-4 normal; 5-9 mild; 10-14 moderate; 15-21 severe): 21 Source: Developed by Drs. Price Tanner, Alma Esquivel, Sukhjinder Clark and colleagues, with an educational bettie from [employer]. Physical exam (Primary Care) Vital Signs: Last Vital Signs Pulse 84 03/11/24 10:04 BP 130/70 03/11/24 10:04 Pulse Ox 97 03/11/24 10:04 Oxygen Delivery Method Room Air 03/11/24 10:04 BMI result Body Mass Index 30.6 Tobacco/Smoking Status: Tobacco use Status Tobacco use date assessed 03/11/24 03/11/24 10:10 Patient Tobacco Use Status Never used Tobacco 03/11/24 10:10 e-Cigarette/Vaping Use Never Used 03/11/24 10:10 Thrive Assessment: Date of Thrive Assessment Date Thrive assessed 10/27/23 03/11/24 10:10 Const General: cooperative and healthy appearing Nutritional Appearance: well nourished Orientation/consciousness: patient oriented x3 Limitations: no limitations HENMT Head: Yes normal to inspection Eyes General: appearance normal, both eyes and all related structures Neck Neck: Yes normal visual inspection Chest Chest palpation & inspection: normal palpation of entire chest wall Resp Effort & Inspection: normal respiratory effort Neuro General: patient oriented x3 Assessment and Plan Assessment & Plan (1) Cognitive disorder: Code(s): 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 I have agreed to fill the necessary paperwork. (2) Hypertension: Code(s): I10 - Essential (primary) hypertension Qualifiers: Hypertension type: other secondary hypertension Qualified Code(s): I15.8 - Other secondary hypertension Plan: Blood pressure is in range. Continue medications at the same dosage. Coding Level of Care Code Est Pt Level 4 (14335) Diagnoses Cognitive disorder F09 Other secondary hypertension I15.8 Hypertension type: other secondary hypertension
[2024-03-11 10:04] VITALS: BP 130/70; PULSE 84; O2SAT 97; BMI 30.6
== END 2024-03-11 10:55 | disposition home or self-care (01) ==
PROVIDERS: PCP Internal Medicine; Visit Provider Internal Medicine
DX: F09 Unspecified mental disorder due to known physiological condition (principal); I15.8 Other secondary hypertension
CPT/HCPCS: 99214

== ENCOUNTER 2024-05-24 08:23 | Outpatient (AMB) | payer MEDICARE, MEDICAID, SELFPAY ==
[2024-05-24 08:26] VITALS: BP 132/68; PULSE 72; O2SAT 97; BMI 30.9
--- NOTE | 2024-05-24 08:26 | MHC.PC.OV ---
Vital Signs 05/24/24 08:26 Height 5 ft 2 in Weight 169 lb 0.4 oz BMI 30.9 BP 132/68 Blood Pressure Location Lt brachial Position Sitting Pulse 72 Pulse Source Pulse Oximeter Pulse Oximetry (%) 97 Oxygen Delivery Method Room Air Intake Visit Reasons: increased edema Flight Manager Required: No Allergies aspirin Allergy (Intermediate, Verified 05/24/24 08:30) itchy dog dander Allergy (Unknown, Verified 05/24/24 08:30) unknown penicillin G Allergy (Unknown, Verified 05/24/24 08:30) Unknown lisinopril Adverse Reaction (Intermediate, Verified 05/24/24 08:30) Cough Seasonale Allergy (Unknown, Uncoded 05/24/24 08:30) Unknown Tobacco use date assessed: 03/11/24 Fall risk assessment: No Falls in past year Last assessed Fall Risk: 05/24/24 Dental Screening Dental Screen Date: 10/27/23 HPI increased edema HPI Details 89-year-old female presents to the office to discuss her medical condition. She is accompanied by her older son. He is accompanying her for the 1st time. Son is providing most of the history. He has noted that her legs swell up in the past month. Symptoms usually happen during the day and can subsided during the evening. No associated shortness of breath. No headaches or blurred vision. Compliant with medications. Continues to exercise with no difficulty. Her gait has been in fact improving. Son is concerned about her forgetfulness. He reports that she repeats her questions frequently. [facility] Medical History (Updated 05/24/24 @ 09:09 by Cheikh Coyne MD) Cognitive disorder Dystrophic nail Anxiety High cholesterol Hypertension Depression Surgical History History of hysterectomy Family History Father No problems noted. Mother No problems noted. Brother No problems noted. Family/Other Mental health disorder Social History Housing: House Alcohol intake: never Patient Tobacco Use Status: Never used Tobacco e-Cigarette/Vaping Use: Never Used Second Hand Smoke Exposure: No service: No Current occupational status: retired Cognitive needs: No Hearing needs: Yes (hearing aide) Vision needs: Yes Questionnaire PHQ-9 Over the last 2 weeks, how often have you been bothered by any of the following problems? 1. Little interest or pleasure in doing things: not at all 2. Feeling down, depressed, or hopeless: not at all 3. Trouble falling or staying asleep, or sleeping too much: not at all 4. Feeling tired or having little energy: not at all 5. Poor appetite or overeating: not at all 6. Feeling bad about yourself - or that you are a failure or have let yourself or your family down: not at all 7. Trouble concentrating on things, such as reading the newspaper or watching television: not at all 8. Moving or speaking so slowly that other people could have noticed. Or the opposite - being so fidgety or restless that you have been moving around a lot more than usual: not at all 9. Thoughts that you would be better off or of hurting yourself in some way: not at all Total score: 0 Depression Screening Interpretation: Negative Depression Screening Done: Yes Source: Developed by Drs. Price Tanner, Alma Esquivel, Sukhjinder Clark and colleagues, with an educational bettie from [employer]. Thrive Questionnaire Date Thrive assessed: 10/27/23 Currently or been in a relationship where the following occur: No concerns reported THRIVE Score: 0 AUDIT C Alcohol Use Questionnaire (AUDIT-C) 1. How often do you have a drink containing alcohol?: Never Total Score: 0 BARON-7 AMB Questionnaire BARON-7 Date BARON - 7 assessed: 03/11/24 Source: Developed by Drs. Price Tanner, Alma Esquivel, Sukhjinder Clark and colleagues, with an educational bettie from [employer]. Physical exam (Primary Care) Vital Signs: Last Vital Signs Pulse 72 05/24/24 08:26 BP 132/68 05/24/24 08:26 Pulse Ox 97 05/24/24 08:26 Oxygen Delivery Method Room Air 05/24/24 08:26 Care Plan Goal for BP management: Blood pressure is stable BMI result Body Mass Index 30.9 Tobacco/Smoking Status: Tobacco use Status Tobacco use date assessed 03/11/24 05/24/24 08:29 Patient Tobacco Use Status Never used Tobacco 05/24/24 08:29 e-Cigarette/Vaping Use Never Used 05/24/24 08:29 PHQ-9: PHQ-9 Score PHQ-9: Total score 0 05/24/24 08:29 Depression Screening Interpretation: Negative Thrive Assessment: Date of Thrive Assessment Date Thrive assessed 10/27/23 05/24/24 08:29 Currently or been in a relationship where the following occur: No concerns reported Advance Care Planning discussion: Exists, not on file Date of discussion: 05/24/24 Who was present: Granddaughter, Niya Fernando is the healthcare proxy according to the son. Forms completed: Health Care Proxy Time spent: 1-15 minutes, not on file Const General: cooperative and healthy appearing Nutritional Appearance: well nourished Orientation/consciousness: patient oriented x3 Limitations: no limitations HENMT Head: Yes normal to inspection Eyes General: appearance normal, both eyes and all related structures Neck Neck: Yes normal visual inspection Chest Chest palpation & inspection: normal palpation of entire chest wall Resp Effort & Inspection: normal respiratory effort Neuro General: patient oriented x3 Extrem Other: Right and left lower extremity: No edema. Assessment and Plan Assessment & Plan (1) Bilateral leg edema: Code(s): R60.0 - Localized edema Plan: Today's physical exam, did not reveal edema. Reassurance. (2) Moderate anxiety: Code(s): F41.9 - Anxiety disorder, unspecified Plan: Condition is at baseline. (3) Cognitive disorder: Code(s): F09 - Unspecified mental disorder due to known physiological condition Plan: Patient's older son accompanying her today expressed surprise at the diagnosis of dementia and cognitive disorder. He was informed that this was diagnosed in 06/08/2022. Patient was seen by a neurologist on 06/11/2022, an MRI of the brain was done on June 2022 which showed significant volume loss. He did not want a 2nd opinion or a neurology follow-up. Coding Level of Care Code Est Pt Level 4 (96525) Complex EM visit Add On G2211 Diagnoses Bilateral leg edema R60.0 Moderate anxiety F41.9 Cognitive disorder F09 Additional Codes Vital Signs *Quality* - Advance Care Planning discussion: Exists, not on file ([id number]) Vital Signs *Quality* - Time spent: 1-15 minutes, not on file ([id number])
== END 2024-05-24 09:01 | disposition home or self-care (01) ==
PROVIDERS: PCP Internal Medicine; Visit Provider Internal Medicine
DX: R60.0 Localized edema (principal); F41.9 Anxiety disorder, unspecified; F09 Unspecified mental disorder due to known physiological condition; Z00.00 Encounter for general adult medical examination without abnormal findings
CPT/HCPCS: 1123F; 1124F; 99214; G2211

== ENCOUNTER 2024-08-26 10:36 | Outpatient (REF) | payer MEDICARE, SELFPAY ==
[2024-08-26 11:57] LABS: Hematocrit 41.9 % (37.0-47.0); Hemoglobin 13.6 g/dl (12.0-16.0); Mean Corpuscular HGB Conc 32.5 g/dl (31.0-35.0); Mean Corpuscular Hemoglobin 27.5 pg (27.0-33.0); Mean Corpuscular Volume 84.8 fL (80.0-98.0); Mean Platelet Volume 9.8 fL (9.4-12.3); Platelet Count 245 X10*3/uL (160-400); Red Blood Count 4.94 X10*6/uL (4.20-5.50); Red Cell Distribution Width 13.2 % (11.0-16.0); White Blood Count 6.5 X10*3/uL (4.8-10.8)
[2024-08-26 12:03] LABS: Appearance Urine Clear; Color Urine Yellow; Glucose Urine UA Negative (Negative); Leukocyte Esterase Urine Small (1+) (Negative); Nitrite Urine Negative (Negative); UMIC TRIGGER UA YES; Urine Blood Small (1+) (Negative); Urine Ketones Negative (Negative); Urine Protein Negative (Neg-Trace)
[2024-08-26 12:09] LABS: Bacteria Urine None Seen (None Seen); Hyaline Casts Urine 0-2 /LPF (0-2); Squamous Epithelial Cell Urine 0-2 /HPF (0-2)
[2024-08-26 12:29] LABS: Alanine Aminotransferase 26 U/L (0-31); Albumin Level 4.1 g/dL (3.5-5.0); Alkaline Phosphatase 143 U/L (39-117); Anion Gap 14 (12-20); Aspartate Amino Transferase 33 U/L (5-31); Bilirubin Direct 0.3 mg/dL (0.0-0.5); Bilirubin Total 0.6 mg/dL (0.0-1.0); Blood Urea Nitrogen 9 mg/dL (9-16); Calcium 9.8 mg/dL (8.4-10.2); Carbon Dioxide 28 mmol/L (22-29); Chloride 101 mmol/L (96-108); Cholesterol 133 mg/dL (<200); Estimated Glomerular Filt Rate > 60; Glucose Random 100 mg/dL (60-115); HDL Cholesterol 72 mg/dL (>40); LDL Cholesterol Calculated 52 mg/dL (<100); Potassium 4.3 mmol/L (3.3-5.1); Sodium 139 mmol/L (135-145); Total Protein 8.2 g/dL (6.5-8.0); Triglycerides 47 mg/dL (<150)
[2024-08-26 12:54] LABS: Thyroid Stimulating Hormone 0.82 uIU/mL (0.32-4.0)
== END 2024-08-26 10:37 | disposition home or self-care (01) ==
LOC: HO.LAB 10:36
PROVIDERS: PCP Internal Medicine; Visit Provider Internal Medicine
DX: F09 Unspecified mental disorder due to known physiological condition (principal); F41.9 Anxiety disorder, unspecified; R60.0 Localized edema
CPT/HCPCS: 36415; 80048; 80061; 80076; 81001; 81003; 84443; 85027

== ENCOUNTER 2024-09-01 09:49 | Outpatient (AMB) | payer MEDICARE, MEDICAID, SELFPAY ==
--- NOTE | 2024-09-01 10:12 | A.OFFPC_ITS ---
Vital Signs 09/01/24 10:13 Height 5 ft 2 in Weight 172 lb 8 oz BMI 31.5 BP 130/78 Blood Pressure Location Lt brachial Position Sitting Pulse 76 Pulse Source Pulse Oximeter Pulse Oximetry (%) 98 Oxygen Delivery Method Room Air Intake Visit Reasons: Annual Exam/ 3mth f/u Intake Note: Patient is here today for a physical. Complaint of cough ongoing and itchy scalp on top of the head. Final Cigar And Box Examiner Required: Yes Final Cigar And Box Examiner Language: Asset Availability Leader Name: Son Information Interpreted: non-clinical & clinical Bowling Ball Weigher And Packer: Present (Son and Granddaughter) Accompanied by: Son Allergies aspirin Allergy (Intermediate, Verified 09/05/24 15:45) itchy dog dander Allergy (Unknown, Verified 09/05/24 15:45) unknown penicillin G Allergy (Unknown, Verified 09/05/24 15:45) Unknown lisinopril Adverse Reaction (Intermediate, Verified 09/05/24 15:45) Cough Seasonale Allergy (Unknown, Uncoded 09/05/24 15:45) Unknown Medication List - Last Reconciled 09/05/24 by Cheikh Coyne MD atorvastatin 10 mg PO DAILY benzonatate 100 mg PO BID PRN buspirone 10 mg PO BID clonazepam 0.5 mg PO DAILY diphenhydramine HCl 25 mg PO DAILY 90 days [Ensure drink As directed] losartan 100 mg PO DAILY [id number]-sksjrrgr-xcwoow 1 tab PO DAILY 2 months selenium sulfide 2.25% 1 appl topical DAILY 7 days sertraline 50 mg PO DAILY Tobacco use date assessed: 09/01/24 Fall risk assessment: No Falls in past year Last assessed Fall Risk: 09/01/24 Dental Screening Dental Screen Date: 10/27/23 HPI Annual Exam/ 3mth f/u HPI Details 89 yr old female presents to the office requesting a physical. In addition, patient is requesting an evaluation of her scalp which is very itchy. She is also having a nonproductive cough for which she would like to get some medication. Patient is accompanied to the office by her son who is speaking on her behalf. [facility] Medical History Cognitive disorder Dystrophic nail Anxiety High cholesterol Hypertension Depression Surgical History History of hysterectomy Family History Father No problems noted. Mother No problems noted. Brother No problems noted. Family/Other Mental health disorder Social History Housing: House Alcohol intake: never Patient Tobacco Use Status: Never used Tobacco e-Cigarette/Vaping Use: Never Used Second Hand Smoke Exposure: No service: No Current occupational status: retired Cognitive needs: No Hearing needs: Yes (hearing aide) Vision needs: Yes Questionnaire PHQ-9 Over the last 2 weeks, how often have you been bothered by any of the following problems? 1. Little interest or pleasure in doing things: not at all 2. Feeling down, depressed, or hopeless: not at all 3. Trouble falling or staying asleep, or sleeping too much: not at all 4. Feeling tired or having little energy: not at all 5. Poor appetite or overeating: not at all 6. Feeling bad about yourself - or that you are a failure or have let yourself or your family down: not at all 7. Trouble concentrating on things, such as reading the newspaper or watching television: not at all 8. Moving or speaking so slowly that other people could have noticed. Or the opposite - being so fidgety or restless that you have been moving around a lot more than usual: not at all 9. Thoughts that you would be better off or of hurting yourself in some way: not at all Total score: 0 Source: Developed by Drs. Price Tanner, Alma Esquivel, Sukhjinder Clark and colleagues, with an educational bettie from [employer]. Thrive Questionnaire Date Thrive assessed: 10/27/23 I am a: Parent/Caregiver What is your living situation today?: I have a steady place to live Within the past 12 months, did the food you bought not last and you didn't have the money to get more?: Never true Within the past 12 months, did you worry whether your food would run out before you got money to buy more?: Never true Do you have trouble paying for medicines?: No Do you have trouble getting transportation to medical appointments?: No Do you have trouble paying your heating and electricity bill?: No Do you have trouble taking care of your child, family member or friend?: No Do you have trouble with day-to-day activities such as bathing, preparing meals, shopping, managing finances, etc.?: No Are you currently unemployed and looking for a job?: No Are you interested in more education?: No Please select the resources that you would like help with: None Currently or been in a relationship where the following occur: No concerns reported THRIVE Score: 0 AUDIT C Alcohol Use Questionnaire (AUDIT-C) 1. How often do you have a drink containing alcohol?: Never Total Score: 0 BARON-7 AMB Questionnaire BARON-7 Date BARON - 7 assessed: 09/01/24 Feeling nervous, anxious, or on edge: 0 = Not at all Not being able to stop or control worryin = Not at all Worrying too much about different things: 0 = Not at all Trouble relaxin = Not at all Being so restless that it is hard to sit still: 0 = Not at all Becoming easily annoyed or irritable: 0 = Not at all Feeling afraid as if something awful might happen: 0 = Not at all Total BARON-7 score (0-4 normal; 5-9 mild; 10-14 moderate; 15-21 severe): 0 Source: Developed by Drs. Price Tanner, Alma Esquivel, Sukhjinder Clark and colleagues, with an educational bettie from [employer]. Physical exam (Primary Care) Vital Signs: Last Vital Signs Pulse 76 09/01/24 10:13 BP 130/78 09/01/24 10:13 Pulse Ox 98 09/01/24 10:13 Oxygen Delivery Method Room Air 09/01/24 10:13 BMI result Body Mass Index 31.5 Tobacco/Smoking Status: Tobacco use Status Tobacco use date assessed 09/01/24 09/01/24 10:29 Patient Tobacco Use Status Never used Tobacco 09/01/24 10:29 e-Cigarette/Vaping Use Never Used 09/01/24 10:29 PHQ-9: PHQ-9 Score PHQ-9: Total score 0 09/01/24 10:50 Thrive Assessment: Date of Thrive Assessment Date Thrive assessed 10/27/23 09/01/24 10:29 Currently or been in a relationship where the following occur: No concerns reported Const General: cooperative and healthy appearing Nutritional Appearance: well nourished Orientation/consciousness: patient oriented x3 Limitations: no limitations HENMT Other: Scalp: Flakes of seborrhea. Head: Yes normal to inspection Eyes General: appearance normal, both eyes and all related structures Neck Neck: Yes normal visual inspection Chest Chest palpation & inspection: normal palpation of entire chest wall Resp Effort & Inspection: normal respiratory effort Neuro General: patient oriented x3 Office Procedures Flu Questionnaire Does the patient have a severe egg allergy?: No Does the patient have severe life threatening allergies?: No Does the patient have a fever or illness today?: No Has the patient ever had Guillain-Naples Syndrome?: No Has the patient ever had any past reaction to a flu shot?: No Immunizations Fluarix Triv [id number] (PF) 45 mcg (15 mcg x 3)/0.5 mL IM syringe Performing Provider: Cheikh Coyne MD [facility]forming [facility] [place] [facility] Administered by: ABRAN Reina on 09/01/24 10:37 Dose Route Admin Location Dispensed Lot Number Expiration Date [facility] Loin Puller 0.5 mL IM Left Deltoid 0.5 mL [id number] 04/18/25 [id number] [employer] VIS Given Date VIS Provided VIS Publication Date 09/01/24 Single Vaccine 21 Eligibility Eligibility Date Funding Source Not [facility] Eligible 09/01/24 Private Coding Level of Care Code Est Pt Level 3 (42078) Est Pt Prev Care >65y(21927) Diagnoses Annual physical exam Z00.00 Seborrheic dermatitis L21.9 Assessment & Plan Assessment & Plan (1) Annual physical exam: Code(s): Z00.00 - Encounter for general adult medical examination without abnormal findings Category: Medical Plan: Blood work reviewed. (2) Seborrheic dermatitis: Code(s): L21.9 - Seborrheic dermatitis, unspecified Plan: Selsun shampoo ordered. Sahara Brito ordered for her cough. Orders: Orders Influenza [id number] Immunization 09/01/24 Z23 - Encounter for immunization Medications: New benzonatate 100 mg PO BID PRN 60 caps 0RF cough selenium sulfide 2.25% massage into affected area; leave on for 10 mins ; rinse off thoroughly 1 appl topical DAILY 180 mL 0RF 7 days
[2024-09-01 10:13] VITALS: BP 130/78; PULSE 76; O2SAT 98; BMI 31.5
== END 2024-09-01 11:00 | disposition home or self-care (01) ==
PROVIDERS: PCP Internal Medicine; Visit Provider Internal Medicine
DX: Z00.00 Encounter for general adult medical examination without abnormal findings (principal); R05.9 Cough, unspecified; L21.9 Seborrheic dermatitis, unspecified

== ENCOUNTER → 2024-09-01 09:49 | Outpatient (BNVA) | payer MEDICARE, MEDICAID, SELFPAY | PROVIDERS: PCP Internal Medicine; Visit Provider Internal Medicine | DX: Z00.00 Encounter for general adult medical examination without abnormal findings (principal); Z23 Encounter for immunization; L21.9 Seborrheic dermatitis, unspecified | CPT/HCPCS: 90471; 90656; 96127; 99212; 99397 ==

== ENCOUNTER 2025-01-13 10:06 | Outpatient (AMB) | payer MEDICARE, MEDICAID, SELFPAY ==
--- NOTE | 2025-01-13 10:19 | A.OFFPC_ITS ---
Vital Signs 01/13/25 10:22 Height 5 ft 2 in Weight 176 lb BMI 32.2 BP 130/72 Blood Pressure Location Lt brachial Position Sitting Pulse 73 Pulse Source Pulse Oximeter Temp 97.1 F Temp Source Temporal Artery Scan Pulse Oximetry (%) 97 Oxygen Delivery Method Room Air Intake Visit Reasons: 3 month f/u Intake Note: Patient is here to follow up on Cognitive disorder, HTN. Carpet Binder Required: Yes Carpet Binder Language: Information Technology Advisor Name: Ramya (Granddaughter) Information Interpreted: non-clinical & clinical (Pt decline management trainee marketing service, prefer granddaughter to translate) Assistant Director Of Plant Operations: Present Accompanied by: Maurizioetr Allergies aspirin Allergy (Intermediate, Verified 01/14/25 10:49) itchy dog dander Allergy (Unknown, Verified 01/14/25 10:49) unknown penicillin G Allergy (Unknown, Verified 01/14/25 10:49) Unknown lisinopril Adverse Reaction (Intermediate, Verified 01/14/25 10:49) Cough Seasonale Allergy (Unknown, Uncoded 01/14/25 10:49) Unknown Medication List - Last Reconciled 01/14/25 by Cheikh Coyne MD atorvastatin 10 mg PO DAILY benzonatate 100 mg PO BID PRN buspirone 10 mg PO BID clonazepam 0.5 mg PO DAILY diphenhydramine HCl 25 mg PO DAILY 90 days [Ensure drink As directed] losartan 100 mg PO DAILY [id number]-bavymmno-dwgmwi 1 tab PO DAILY 2 months selenium sulfide 2.25% 1 appl topical DAILY 7 days sertraline 50 mg PO DAILY Tobacco use date assessed: 01/13/25 Fall risk assessment: 1 Fall in past year Last assessed Fall Risk: 01/13/25 Dental Screening Dental Screen Date: 01/13/25 Did you have a dental visit in the last 12 months?: No Did you have a dental problem in the last 6 months where you did not have access to dental care?: No Was dental information given to patient?: No PFSH Medical History Cognitive disorder Dystrophic nail Anxiety High cholesterol Hypertension Depression Surgical History History of hysterectomy Family History Father No problems noted. Mother No problems noted. Brother No problems noted. Family/Other Mental health disorder Social History Housing: House Alcohol intake: never Patient Tobacco Use Status: Never used Tobacco e-Cigarette/Vaping Use: Never Used Second Hand Smoke Exposure: No service: No Current occupational status: retired Cognitive needs: No Hearing needs: Yes (hearing aide) Vision needs: Yes Questionnaire PHQ-9 Over the last 2 weeks, how often have you been bothered by any of the following problems? 1. Little interest or pleasure in doing things: not at all 2. Feeling down, depressed, or hopeless: not at all 3. Trouble falling or staying asleep, or sleeping too much: not at all 4. Feeling tired or having little energy: not at all 5. Poor appetite or overeating: not at all 6. Feeling bad about yourself - or that you are a failure or have let yourself or your family down: not at all 7. Trouble concentrating on things, such as reading the newspaper or watching television: not at all 8. Moving or speaking so slowly that other people could have noticed. Or the opposite - being so fidgety or restless that you have been moving around a lot more than usual: not at all 9. Thoughts that you would be better off or of hurting yourself in some way: not at all Total score: 0 Depression Screening Interpretation: Negative Depression Screening Done: Yes Source: Developed by Drs. Price Tanner, Alma Esquivel, Sukhjinder Clark and colleagues, with an educational bettie from [employer]). Thrive Questionnaire Date Thrive assessed: 01/13/25 AUDIT C Alcohol Use Questionnaire (AUDIT-C) 1. How often do you have a drink containing alcohol?: Never Total Score: 0 BARON-7 AMB Questionnaire BARON-7 Date BARON - 7 assessed: 01/13/25 Feeling nervous, anxious, or on edge: 0 = Not at all Not being able to stop or control worryin = Not at all Worrying too much about different things: 0 = Not at all Trouble relaxin = Not at all Being so restless that it is hard to sit still: 0 = Not at all Becoming easily annoyed or irritable: 0 = Not at all Feeling afraid as if something awful might happen: 0 = Not at all Total BARON-7 score (0-4 normal; 5-9 mild; 10-14 moderate; 15-21 severe): 0 Source: Developed by Drs. Price Tanner, Alma Esquivel, Sukhjinder Clark and colleagues, with an educational bettie from [employer]). Physical exam (Primary Care) Vital Signs: Last Vital Signs Temp 97.1 F 01/13/25 10:22 Pulse 73 01/13/25 10:22 BP 130/72 01/13/25 10:22 Pulse Ox 97 01/13/25 10:22 Oxygen Delivery Method Room Air 01/13/25 10:22 Care Plan Goal for BP management: BP in range BMI result Body Mass Index 32.2 BMI Assessment/Plan discussion: High (one pound per week weight loss suggested) BMI High, discussed plan: lifestyle, weight reduction and dietary Tobacco/Smoking Status: Tobacco use Status Tobacco use date assessed 01/13/25 01/13/25 10:28 Patient Tobacco Use Status Never used Tobacco 01/13/25 10:28 e-Cigarette/Vaping Use Never Used 01/13/25 10:28 PHQ-9: PHQ-9 Score PHQ-9: Total score 0 01/13/25 10:28 Depression Screening Interpretation: Negative Thrive Assessment: Date of Thrive Assessment Date Thrive assessed 01/13/25 01/13/25 10:28 Coding Level of Care Code Est Pt Level 4 (81440) Complex EM visit Add On G2211 Diagnoses History of fall Z91.81 Depression, unspecified depression type F32.9 Depression Type: unspecified Assessment & Plan Assessment & Plan (1) History of fall: Code(s): Z91.81 - History of falling Category: Medical Plan: Continues to have small falls. Attender encouraged to attend to her safety (2) Depression: Code(s): F32.9 - Major depressive disorder, single episode, unspecified Category: Medical Qualifiers: Depression Type: unspecified Qualified Code(s): F32.9 - Major depressive disorder, single episode, unspecified Plan: Condition is stable Plan History of Present Illness The patient is an 89-year-old female presenting with recurrent falls. These falls often happen early in the morning around 4:30 AM. A specific incident occurred roughly two weeks ago when she fell while bending to picker box operator a cleaning product, losing her balance in an area with no carpeting. This incident was discovered via cameras, as the patient does not usually report falls. Additionally, her family has noted an increase in aggressive behavior, characterized by reactive gestures when corrected, although she remains active and participates in exercise at a community center. Social History - Exercise: Attends a community center for exercise. - Behavioral changes: Reports of increased aggression, demonstrated by reactive gestures when corrected. Review of Systems - Neurological: Reports increased aggression. Physical Exam General: Appearance normal, both eyes and all related structures Nutritional Appearance: Well nourished Orientation/consciousness: Patient not oriented to time Limitations: No limitations Head: Normal to inspection Neck: Normal visual inspection Chest: Normal palpation of entire chest wall Respiratory: Normal respiratory effort Neurology: Patient not oriented to time Results Plan The management of the patient's recurrent falls will include ordered blood tests, acknowledging that fasting is not necessary and could be completed today. Ensuring home safety measures, such as the absence of carpets, is vital. Her aggression will be monitored as part of her comprehensive care, while she continues her exercise routine at the community hospital. Patient was informed and verbally consented to the use of an ambient scribe for clinic note documentation during this visit. Discussion Notes I discussed with the patient and family the importance of monitoring her falls and ensuring home safety, particularly noting the lack of carpeting as a contributing factor. We addressed the increase in aggression and agreed to continue observing this behavior. For her recurrent falls, blood work has been arranged, with the understanding that fasting is not necessary, and it was agreed upon to complete the blood work today. The patient should continue her exercise regimen, as this appears beneficial. Patient Instructions - Complete blood work today; fasting is not required. - Continue engaging in regular exercise at the community hospital. - Monitor aggressive behavior and report any changes. - Maintain home safety, being cautious of fall risks like lack of carpeting.
[2025-01-13 10:22] VITALS: BP 130/72; PULSE 73; TEMP 36.2; O2SAT 97; BMI 32.2
== END 2025-01-13 11:10 | disposition home or self-care (01) ==
LOC: HO.HMCH 10:07
PROVIDERS: PCP Internal Medicine; Visit Provider Internal Medicine
DX: Z91.81 History of falling (principal); F32.9 Major depressive disorder, single episode, unspecified

== ENCOUNTER → 2025-01-13 10:06 | Outpatient (BNVA) | payer OTHER, SELFPAY | PROVIDERS: PCP Internal Medicine; Visit Provider Internal Medicine | DX: F32.9 Major depressive disorder, single episode, unspecified (principal); Z91.81 History of falling | CPT/HCPCS: 99212 ==

== ENCOUNTER 2025-06-21 10:04 | Outpatient (AMB) | payer OTHER, MEDICAID, SELFPAY ==
[2025-06-21 10:23] VITALS: BP 156/72; PULSE 111; TEMP 37.2; O2SAT 95
--- NOTE | 2025-06-21 10:23 | MHC.OFFWIV ---
Intake Vital Signs 06/21/25 10:23 Height 5 ft 2 in BMI Reason not done Patient refused/unable BP 156/72 H Blood Pressure Location Lt brachial Position Sitting Pulse 111 H Pulse Source Pulse Oximeter Temp 98.9 F Temp Source Oral Pulse Oximetry (%) 95 Oxygen Delivery Method Room Air Intake Visit Reasons: EP-mid & upper back pain/head injury from a fall Intake Note: pt presents with mid back, upper back and head pain after a fall overnight Patient Tobacco Use Status: Never used Tobacco Allergies aspirin Allergy (Intermediate, Verified 06/21/25 10:26) itchy dog dander Allergy (Unknown, Verified 06/21/25 10:26) unknown penicillin G Allergy (Unknown, Verified 06/21/25 10:26) Unknown lisinopril Adverse Reaction (Intermediate, Verified 06/21/25 10:26) Cough Seasonale Allergy (Unknown, Uncoded 01/14/25 10:49) Unknown Do you need a note to return to daycare/school/sports/work: No HPI HPI Comments History of Present Illness Details Family will interpret German for the patient, paraprofessional interpreter declined. History of Present Illness - The patient is an 89-year-old female presenting with her son and granddaughter with a fall resulting in contusions and abrasions. - The fall occurred last night when the patient slid off the bed, likely hitting a wooden panel, resulting in bruises and abrasions on her back. No LOC, no head strike. not on a blood thinner. - There was no loss of consciousness, dizziness, chest pain, headache, or nausea reported before or after the fall. - The patient did not report any neck pain. - The patient's vital signs showed elevated blood pressure and heart rate during the visit, family notes this is typical for her as she does not like going to the doctor and will deny any pain. - The patient lives with her son, who resides in another room, and they have cameras installed for monitoring. Physical Exam General: Cooperative, healthy appearing, comfortable, no acute distress and well developed Orientation: Patient oriented x3 Limitations: No limitations Head: Normal to inspection, no TTP of scalp Ears: Hearing grossly normal bilaterally Face and sinus: Normal facial exam, some red oneal noted Eyes: Appearance normal, both eyes and all related structures Neck: Normal visual inspection, full ROM, no pain reported Respiratory: Normal respiratory effort and able to speak in complete sentences. Skin: No rashes or lesions noted - see below Neuro: Patient oriented x3, gait normal Back/spine: no TTP cervical, thoracic or lumbar spine, no tenderness to palpation noted, 2 areas of ecchymosis on left mid back. Extremities: moving extremities normally [facility] Medical History Cognitive disorder Dystrophic nail Anxiety High cholesterol Hypertension Depression Surgical History History of hysterectomy Family History Father No problems noted. Mother No problems noted. Brother No problems noted. Family/Other Mental health disorder Social History Housing: House Alcohol intake: never Patient Tobacco Use Status: Never used Tobacco e-Cigarette/Vaping Use: Never Used Second Hand Smoke Exposure: No service: No Current occupational status: retired Cognitive needs: No Hearing needs: Yes (hearing aide) Vision needs: Yes Review of Systems Const All systems reviewed & are unremarkable except as noted in HPI and below Physical Exam Vital Signs: Last Vital Signs Temp 98.9 F 06/21/25 10:23 Pulse 111 H 06/21/25 10:23 BP 156/72 H 06/21/25 10:23 Pulse Ox 95 06/21/25 10:23 Oxygen Delivery Method Room Air 06/21/25 10:23 Assessment & Plan Assessment & Plan (1) Fall as cause of accidental injury at home as place of occurrence: Code(s): W19.XXXA - Unspecified fall, initial encounter; Y92.009 - Unspecified place in unspecified non-institutional (private) residence as the place of occurrence of the external cause Qualifiers: Encounter type: initial encounter Qualified Code(s): W19.XXXA - Unspecified fall, initial encounter; Y92.009 - Unspecified place in unspecified non-institutional (private) residence as the place of occurrence of the external cause Plan: Plan Patient was informed and verbally consented to the use of an ambient scribe for clinic note documentation during this visit. Fall With Resultant Contusions - no concern for concussion, slid off bed onto floor with no LOC, not on a blood thinner. - Monitor for any signs of worsening bruising or pain. - Consider using side protectors on the bed to prevent future falls. - Ensure the bed is lowered to facilitate easier access. 2. Elevated Blood Pressure - Monitor blood pressure at home to ensure it returns to normal levels. 3. Elevated Heart Rate - Monitor heart rate at home to ensure it returns to normal levels. (2) Contusion: Code(s): T14.8XXA - Other injury of unspecified body region, initial encounter Qualifiers: Encounter type: initial encounter Contusion area: thoracic wall Front or back of thoracic wall: back Thoracic wall location detail: right Qualified Code(s): S20.221A - Contusion of right back wall of thorax, initial encounter Plan: as above Coding Level of Care Code Est Pt Level 3 (67701) Diagnoses Fall as cause of accidental injury in home as place of occurrence, initial encounter W19.XXXA; Y92.009 Encounter type: initial encounter Contusion of right back wall of thorax, initial encounter S20.221A Encounter type: initial encounter Contusion area: thoracic wall Front or back of thoracic wall: back Thoracic wall location detail: right
--- OUTSIDE RECORDS SUMMARY | 2025-06-21 11:26 | XMS_ITS | Clinical Summary ---
Author Organization [address] [facility] Address [address] [place] [address] Phone Care Team Providers Care Bakery Decorator Name Role Phone Cheikh Coyne MD Primary Care Provider [phone] Allergies Active Allergy Reactions Criticality Noted Date Comments Aspirin 01/21/2024 Penicillins 01/21/2024 Medications atorvastatin (LIPITOR) 10 mg tablet Take 1 Tablet by mouth daily. Active busPIRone (BUSPAR) 10 mg tablet Take 1 Tablet by mouth 3 times daily. Active diphenhydrAMINE (BENADRYL) 25 mg tablet Take 1 Tablet by mouth every 8 hours as needed. Active lisinopriL (PRINIVIL,ZESTRI L) 10 mg tablet Take 1 Tablet by mouth daily. Active LORazepam (ATIVAN) 1 mg tablet Take 1 Tablet by mouth every 6 hours as needed. Active propranoloL (INDERAL) 10 mg tablet Take 1 Tablet by mouth 3 times daily. Active sertraline (ZOLOFT) 25 mg tablet Take 1 Tablet by mouth daily. Active Encounters Date Type Department Care Team Description 06/09/2025 1:15 PM EDT Office Visit Orthopedic Surgery [facility] [address] [facility] [address] [place] [phone] Chacho Farah DPM Primary osteoarthritis of both feet (Primary Dx); Follow-up exam; Bilateral femoral artery stenosis (CMS/HCC V24); Dermatophytosis of nail; Pain in toe of right foot; Pain in toe of left foot; Corns and callosities; Metatarsalgia of both feet from Last 3 Months Social History Tobacco Use Types Packs/Day Years Used Date Smoking Tobacco: Never Assessed Comments Unknown Sex and Gender Information Value Date Recorded Sex Assigned at Not on file Legal Sex Female 11:06 AM EDT Gender Identity Not on file Sexual Orientation Not on file Last Filed Vital Signs Vital Sign Reading Time Taken Comments Blood Pressure - - Pulse - - Temperature - - Respiratory Rate - - Oxygen Saturation - - Inhaled Oxygen Concentration - - Weight 76.7 kg (169 lb 1.5 oz) 06/09/2025 12:59 PM EDT Height 157.5 cm (5' 2.01 ) 06/09/2025 12:59 PM E DT Body Mass Index 30.92 06/09/2025 12:59 PM EDT Plan of Treatment Upcoming Encounters Date Type Department Care Team (Late st Contact Info) Description 09/13/2025 1:15 PM EST Office Visit Orthopedic Surgery - [facility] [address] [phone] Chacho Farah, DPM [address] [phone] Health Maintenance Due Date Last Done Comments RSV Immunization Adult Patients (1 - 1-dose 75+ series) 01/25/2011 Zoster Vaccines (2 of 3) 09/19/2017 07/25/2017 Pneumococcal Vaccine: 50+ Years (2 of 2 - PCV) 07/21/2018 07/21/2017 Cholesterol Screening (Lipid Panel) 05/14/2024 Falls Risk Assessment 05/14/2024 Medicare Annual Wellness Visit 05/14/2024 Osteoporosis Screening (Bone Density Screening) 05/14/2024 Social Influencers of Health Screening 05/14/2024 Depression Screening 10/20/2024 COVID-19 Vaccine (2 - 2024-2 6 season) 2025 01/09/2021 Influenza Vaccine (#1) 2025 , 09/10/2019, 07/21/2017 DTaP,Tdap,and Td Vaccines (2 - Td or Tdap) 07/21/2027 07/21/2017 HIB Vaccines Aged Out No longer eligi ble based on patient's age to complete this topic HPV Vaccines Aged Out No longer eligi ble based on patient's age to complete this topic Hepatitis A Vaccines Aged Out No long er eligible based on patient's age to complete this topic Hepatitis B Vaccines Aged Out No long er eligible based on patient's age to complete this topic IPV Vaccines Aged Out No longer eligi ble based on patient's age to complete this topic MMR Vaccines Aged Out No longer eligi ble based on patient's age to complete this topic Meningococcal ACWY Vaccine Aged Out N o longer eligible based on patient's age to complete this topic Meningococcal B Vaccine Aged Out No l onger eligible based on patient's age to complete this topic RSV Immunization Patients Under 20 months Aged Out No longer eligible b ased on patient's age to complete this topic Varicella Vaccines Aged Out No longer eligible based on patient's age to complete this topic Insurance [employer] Care Teams Bakery Decorator Relationship Specialty Start Date End Date Cheikh Coyne MD [facility] [address] [place] [address] [address] [place] [address] PCP - General 11/28/23
== END 2025-06-21 11:00 | disposition home or self-care (01) ==
PROVIDERS: PCP Internal Medicine; Visit Provider Physician Assistant
DX: S20.221A Contusion of right back wall of thorax, initial encounter (principal); W19.XXXA Unspecified fall, initial encounter; Y92.009 Unspecified place in unspecified non-institutional (private) residence as the place of occurrence of the external cause

== ENCOUNTER → 2025-06-21 10:04 | Outpatient (BNVA) | payer OTHER, SELFPAY | PROVIDERS: PCP Internal Medicine; Visit Provider Physician Assistant | DX: S20.221A Contusion of right back wall of thorax, initial encounter (principal); R03.0 Elevated blood-pressure reading, without diagnosis of hypertension; W19.XXXA Unspecified fall, initial encounter; Y93.9 Activity, unspecified; Y92.9 Unspecified place or not applicable; Y99.9 Unspecified external cause status | CPT/HCPCS: 99212 ==

== ENCOUNTER 2025-07-29 12:47 | Outpatient (AMB) | payer OTHER, MEDICAID, SELFPAY ==
[2025-07-29 12:55] VITALS: BP 160/64; PULSE 85; RESP 18; TEMP 36.3; O2SAT 95; BMI 30.7
--- NOTE | 2025-07-29 12:55 | A.OFFPC_ITS ---
Vital Signs 07/29/25 12:55 Height 5 ft 2 in Weight 167 lb 15.876 oz BMI 30.7 BP 160/64 H Blood Pressure Location Rt brachial Position Sitting Respiration 18 Pulse 85 Pulse Source Pulse Oximeter Temp 97.3 F Temp Source Temporal Artery Scan Pulse Oximetry (%) 95 Oxygen Delivery Method Room Air Intake Visit Reasons: productive cough x 1 month Insights Analyst Required: No Accompanied by: Self / Same As Patient Allergies aspirin Allergy (Intermediate, Verified 07/29/25 12:56) itchy dog dander Allergy (Unknown, Verified 07/29/25 12:56) unknown penicillin G Allergy (Unknown, Verified 07/29/25 12:56) Unknown lisinopril Adverse Reaction (Intermediate, Verified 07/29/25 12:56) Cough Seasonale Allergy (Unknown, Uncoded 01/14/25 10:49) Unknown Tobacco use date assessed: 07/29/25 Fall risk assessment: 2 + Falls in past year Last assessed Fall Risk: 07/29/25 Dental Screening Dental Screen Date: 07/29/25 Did you have a dental visit in the last 12 months?: No Did you have a dental problem in the last 6 months where you did not have access to dental care?: No Was dental information given to patient?: No HPI HPI Comments History of Present Illness Details The patient is an 89-year-old female presenting with respiratory congestion. The congestion has been persistent for a while, and she has been using Robitussin, which the nurse believes may be compressing the mucus. There is no associated fever, and she does not smoke. The patient also has a history of hypertension, for which she is on medication. It is important to ensure that any new medication does not interfere with her current antihypertensive treatment. Additionally, the patient has been managing anxiety with clonazepam. There was some confusion regarding her medication, as it was initially thought to be lorazepam, but it was confirmed to be clonazepam. She takes this medication at night to prevent drowsiness. [facility] Medical History Cognitive disorder Dystrophic nail Anxiety High cholesterol Hypertension Depression Surgical History History of hysterectomy Family History Father No problems noted. Mother No problems noted. Brother No problems noted. Family/Other Mental health disorder Social History Housing: House Alcohol intake: never Patient Tobacco Use Status: Never used Tobacco e-Cigarette/Vaping Use: Never Used Second Hand Smoke Exposure: No service: No Current occupational status: retired Cognitive needs: No Hearing needs: Yes (hearing aide) Vision needs: Yes Questionnaire PHQ-9 Over the last 2 weeks, how often have you been bothered by any of the following problems? 1. Little interest or pleasure in doing things: several days 2. Feeling down, depressed, or hopeless: not at all 3. Trouble falling or staying asleep, or sleeping too much: several days 4. Feeling tired or having little energy: several days 5. Poor appetite or overeating: not at all 6. Feeling bad about yourself - or that you are a failure or have let yourself or your family down: not at all 7. Trouble concentrating on things, such as reading the newspaper or watching television: not at all 8. Moving or speaking so slowly that other people could have noticed. Or the opposite - being so fidgety or restless that you have been moving around a lot more than usual: more than half the days 9. Thoughts that you would be better off or of hurting yourself in some way: not at all Total score: 5 Source: Developed by Drs. Price Tanner, Alma Esquivel, Sukhjinder Clark and colleagues, with an educational bettie from [employer]. Thrive Questionnaire Date Thrive assessed: 01/13/25 I am a: Parent/Caregiver What is your living situation today?: I have a steady place to live Within the past 12 months, did the food you bought not last and you didn't have the money to get more?: Never true Within the past 12 months, did you worry whether your food would run out before you got money to buy more?: Never true Do you have trouble paying for medicines?: No Do you have trouble getting transportation to medical appointments?: No Do you have trouble paying your heating and electricity bill?: No Do you have trouble taking care of your child, family member or friend?: No Do you have trouble with day-to-day activities such as bathing, preparing meals, shopping, managing finances, etc.?: Yes Are you currently unemployed and looking for a job?: No Are you interested in more education?: No Please select the resources that you would like help with: None Currently or been in a relationship where the following occur: I choose not to answer THRIVE Score: 0 AUDIT C Alcohol Use Questionnaire (AUDIT-C) 1. How often do you have a drink containing alcohol?: Never Total Score: 0 BARON-7 AMB Questionnaire BARON-7 Date BARON - 7 assessed: 01/13/25 Feeling nervous, anxious, or on edge: 2 = More than half the days Not being able to stop or control worryin = More than half the days Worrying too much about different things: 3 = Nearly every day Trouble relaxin = Nearly every day Being so restless that it is hard to sit still: 2 = More than half the days Becoming easily annoyed or irritable: 0 = Not at all Feeling afraid as if something awful might happen: 0 = Not at all Total BARON-7 score (0-4 normal; 5-9 mild; 10-14 moderate; 15-21 severe): 12 Source: Developed by Drs. Price Tanner, Alma Esquivel, Sukhjinder Clark and colleagues, with an educational bettie from [employer]. Review of Systems Const Details: Positives besides what was mentioned in HPI are in BOLD Constitutional: No Weight Change, No Fever, No Chills, No Night Sweats, No Fatigue, No Malaise ENT/Mouth: No Hearing Changes, No Ear Pain, No Nasal Congestion, No Sinus Pain, No Hoarseness, No sore throat, No Rhinorrhea, No Swallowing Difficulty Eyes: No Eye Pain, No Swelling, No Redness, No Foreign Body, No Discharge, No Vision Changes Cardiovascular: No Chest Pain, No SOB, No PND, No Dyspnea on Exertion, No Orthopnea, No Claudication, No Edema, No Palpitations Respiratory: No Cough, No Sputum, No Wheezing, No Smoke Exposure, No Dyspnea Gastrointestinal: No Nausea, No Vomiting, No Diarrhea, No Constipation, No Pain, No Heartburn, No Anorexia, No Dysphagia, No Hematochezia, No Melena, No Flatulence, No Jaundice Genitourinary: No Dysmenorrhea, No DUB, No Dyspareunia, No Dysuria, No Urinary Frequency, No Hematuria, No Urinary Incontinence, No Urgency, No Flank Pain, No Urinary Flow Changes, No Hesitancy Musculoskeletal: No Arthralgias, No Myalgias, No Joint Swelling, No Joint Stiffness, No Back Pain, No Neck Pain, No Injury History Skin: No Skin Lesions, No Pruritis, No Hair Changes, No Breast/Skin Changes, No Nipple Discharge Neuro: No Weakness, No Numbness, No Paresthesias, No Loss of Consciousness, No Syncope, No Dizziness, No Headache, No Coordination Changes, No Recent Falls Psych: No Anxiety/Panic, No Depression, No Insomnia, No Personality Changes, No Delusions, No Rumination, No SI/HI/AH/VH, No Social Issues, No Memory Changes, No Violence/Abuse Hx., No Eating Concerns Heme/Lymph: No Bruising, No Bleeding, No Transfusions History, No Lymphadenopathy Endocrine: No Polyuria, No Polydipsia, No Temperature Intolerance Physical exam (Primary Care) Vital Signs: Last Vital Signs Temp 97.3 F 07/29/25 12:55 Pulse 85 07/29/25 12:55 Resp 18 07/29/25 12:55 BP 160/64 H 07/29/25 12:55 Pulse Ox 95 07/29/25 12:55 Oxygen Delivery Method Room Air 07/29/25 12:55 BMI result Body Mass Index 30.7 Tobacco/Smoking Status: Tobacco use Status Tobacco use date assessed 07/29/25 07/29/25 12:58 Patient Tobacco Use Status Never used Tobacco 07/29/25 12:58 e-Cigarette/Vaping Use Never Used 07/29/25 12:58 PHQ-9: PHQ-9 Score PHQ-9: Total score 5 07/29/25 12:58 Thrive Assessment: Date of Thrive Assessment Date Thrive assessed 01/13/25 07/29/25 12:58 Currently or been in a relationship where the following occur: I choose not to answer Const Other: Pertinent findings are in BOLD GENERAL APPEARANCE NAD, activity normal for age, well developed/ well nourished, no cyanosis, pallor, or diaphoresis. EYES lids/conjunctiva normal. EARS/NOSE/THROAT Mucous membranes moist, nares normal, lips/teeth normal uvula midline without oral pharyngeal erythema, exudate or swelling TMs normal bilaterally. No lymphangitis/lymphedema. HEAD/NECK normocephalic atraumatic, no facial trauma, neck is supple. RESPIRATORY respiratory effort normal, speaks in full sentences, no tripod position, no accessory muscle use. Lungs clear to auscultation without rhonchi, wheezes, rales CARDIAC Regular rate and rhythm, no edema. ABDOMINAL Soft, ND/NT. No evidence of fluid wave. No pulsatile masses on exam, rebound tenderness, South sign or pain over Mcburney's point. MUSCLES/EXTREMITIES No abnormal range of motion, no swelling. SKIN Warm, pink and dry. No rashes, dermatoses, petechiae or lesions. NEUROLOGICAL Speech is clear and appropriate. Normal level of consciousness. Gait and coordination are normal. 5/5 strength in all extremities. PSYCH Normal mood and affect. Judgement/competence is appropriate Coding Level of Care Code Est Pt Level 4 (05086) Diagnoses Cough R05.9 Anxiety F41.9 Weakness R53.1 Time Spent (min) 20 Assessment & Plan Assessment & Plan (1) Cough: Code(s): R05.9 - Cough, unspecified Category: Medical Plan: - Discontinue Robitussin and initiate Mucinex for mucus relief. - Monitor symptoms and consider chest X-ray if symptoms persist until next follow-up. (2) Anxiety: Code(s): F41.9 - Anxiety disorder, unspecified Category: Medical Plan: - Confirmed clonazepam prescription, to be taken at night for drowsiness. - Refill prescription as needed, ensuring continuity of care. (3) Weakness: Code(s): R53.1 - Weakness Category: Medical Plan: Hospital bed and briefs ordered. Plan During the visit, we discussed the management of respiratory congestion by switching from Robitussin to Mucinex, considering the patient's current medication regimen for hypertension. We also addressed the need for a clonazepam refill to manage anxiety, ensuring it is taken at night to aid with sleep. Follow-up with Dr. Barrera is scheduled for August 25, and a chest X-ray may be considered if respiratory symptoms persist. Medications: New guaifenesin ER (Mucinex) 600 mg PO Q12H PRN 30 tabs 3RF congestion clonazepam (Klonopin) 0.5 mg PO DAILY PRN 30 tabs 0RF anxiety [Brief] As directed 30 ea 11RF [Hospital bed] As directed 1 ea 0RF
== END 2025-07-29 13:38 | disposition home or self-care (01) ==
LOC: HO.HMCH 12:48
PROVIDERS: PCP Internal Medicine; Visit Provider Internal Medicine
DX: R05.9 Cough, unspecified (principal); F41.9 Anxiety disorder, unspecified; R53.1 Weakness

== ENCOUNTER → 2025-07-29 12:47 | Outpatient (BNVA) | payer OTHER, SELFPAY | PROVIDERS: PCP Internal Medicine; Visit Provider Internal Medicine | DX: R05.9 Cough, unspecified (principal); F41.9 Anxiety disorder, unspecified; R53.1 Weakness; Z13.30 Encounter for screening examination for mental health and behavioral disorders, unspecified | CPT/HCPCS: 96127; 99212 ==

== ENCOUNTER 2025-08-25 09:24 | Outpatient (AMB) | payer MEDICARE, MEDICAID, SELFPAY ==
--- NOTE | 2025-08-25 09:35 | MHC.PC.OV ---
Vital Signs 08/25/25 09:37 Height 5 ft 2 in Weight 170 lb 13.732 oz BMI 31.2 BP 110/70 Blood Pressure Location Lt brachial Position Sitting Pulse 71 Pulse Source Pulse Oximeter Temp 96.9 F Temp Source Temporal Artery Scan Pulse Oximetry (%) 98 Oxygen Delivery Method Room Air Intake Visit Reasons: 6mth f/u Intake Note: Patient is here to follow up on HTN, High cholesterol. Padded Products Finisher Required: Yes Padded Products Finisher Language: Nursery Teacher Name: Delma willisighter-inlaw/DUPLICATING MACHINE SERVICER Information Interpreted: non-clinical & clinical (Pt decline translation service prefer for Grand-daughter inlaw to trans late) Clothing Busheler: Present Accompanied by: Grand Child Allergies aspirin Allergy (Intermediate, Verified 08/25/25 09:37) itchy dog dander Allergy (Unknown, Verified 08/25/25 09:37) unknown penicillin G Allergy (Unknown, Verified 08/25/25 09:37) Unknown lisinopril Adverse Reaction (Intermediate, Verified 08/25/25 09:37) Cough Seasonale Allergy (Unknown, Uncoded 08/25/25 09:37) Unknown Tobacco use date assessed: 08/25/25 Fall risk assessment: No Falls in past year Last assessed Fall Risk: 08/25/25 Dental Screening Dental Screen Date: 07/29/25 [facility] Medical History Cognitive disorder Dystrophic nail Anxiety High cholesterol Hypertension Depression Surgical History History of hysterectomy Family History Father No problems noted. Mother No problems noted. Brother No problems noted. Family/Other Mental health disorder Social History Housing: House Alcohol intake: never Patient Tobacco Use Status: Never used Tobacco e-Cigarette/Vaping Use: Never Used Second Hand Smoke Exposure: No service: No Current occupational status: retired Cognitive needs: No Hearing needs: Yes (hearing aide) Vision needs: Yes Questionnaire Thrive Questionnaire Date Thrive assessed: 07/29/25 I am a: Parent/Caregiver What is your living situation today?: I have a steady place to live Within the past 12 months, did the food you bought not last and you didn't have the money to get more?: Never true Within the past 12 months, did you worry whether your food would run out before you got money to buy more?: Never true Do you have trouble paying for medicines?: No Do you have trouble getting transportation to medical appointments?: No Do you have trouble paying your heating and electricity bill?: No Do you have trouble taking care of your child, family member or friend?: No Do you have trouble with day-to-day activities such as bathing, preparing meals, shopping, managing finances, etc.?: Yes Are you currently unemployed and looking for a job?: No Are you interested in more education?: No Please select the resources that you would like help with: None Currently or been in a relationship where the following occur: I choose not to answer THRIVE Score: 0 AUDIT C Alcohol Use Questionnaire (AUDIT-C) 3. How often do you have six or more drinks on one occasion?: Never Total Score: 0 BARON-7 AMB Questionnaire BARON-7 Date BARON - 7 assessed: 01/13/25 Source: Developed by Drs. Price Tanner, Alma Esquivel, Sukhjinder Clark and colleagues, with an educational bettie from [employer]. Physical exam (Primary Care) Vital Signs: Last Vital Signs Temp 96.9 F 08/25/25 09:37 Pulse 71 08/25/25 09:37 BP 110/70 08/25/25 09:37 Pulse Ox 98 08/25/25 09:37 Oxygen Delivery Method Room Air 08/25/25 09:37 BMI result Body Mass Index 31.2 Tobacco/Smoking Status: Tobacco use Status Tobacco use date assessed 08/25/25 08/25/25 09:44 Patient Tobacco Use Status Never used Tobacco 08/25/25 09:44 e-Cigarette/Vaping Use Never Used 08/25/25 09:44 Thrive Assessment: Date of Thrive Assessment Date Thrive assessed 07/29/25 08/25/25 09:44 Currently or been in a relationship where the following occur: I choose not to answer Coding Level of Care Code Est Pt Level 4 (43569) Complex EM visit Add On G2211 Diagnoses Other secondary hypertension I15.8 Hypertension type: other secondary hypertension Assessment & Plan Assessment & Plan (1) Hypertension: Code(s): I10 - Essential (primary) hypertension Category: Medical Qualifiers: Hypertension type: other secondary hypertension Qualified Code(s): I15.8 - Other secondary hypertension Plan: History of Present Illness - The patient is an 89-year-old female presenting for management of hypertension. - Her home blood pressure readings have been elevated, with recent values including 181/80 mmHg, 152/70 mmHg, and 169/83 mmHg. - Propranolol, which was prescribed in July, has not been taken, as the visiting nurse was uncertain about the medication. - She is currently taking lisinopril, reportedly once daily. - The DUPLICATING MACHINE SERVICER reports the patient is still experiencing some congestion. - She was seen for a hearing aid prescription on July 15, and at that time, Dr. Dale noted fluid in her ears and suggested a referral to an Ear, Nose, and Throat specialist, but her hearing has since improved with the use of her hearing aids. - For urinary incontinence, the large-sized adult pull-ups are too small. - Regarding fall prevention, a hospital bed and bedside commode have been implemented, and the patient has had no falls since. - The patient declined the influenza vaccine for this year. Social History - The patient lives with her son. - She receives care from a DUPLICATING MACHINE SERVICER from 7:00 a.m. to 2:30 p.m. - Her grandson stays with her in the afternoon until her son returns from work. - A VNA visits every morning to organize her medications into a weekly enterprise resource planner and check her blood pressure. Review of Systems - General: Reports feeling well and eating well. - Respiratory: Reports persistent congestion. - Ears: Reports improved hearing with hearing aids. Physical Exam General: Cooperative and healthy appearing Nutritional Appearance: Well nourished Orientation/consciousness: Patient oriented x3 Limitations: No limitations Head: Normal to inspection General: Appearance normal, both eyes and all related structures Neck: Normal visual inspection Chest: Normal palpation of entire chest wall Respiratory: Congested, slight rest noted. ormal respiratory effort Neurology: Patient oriented x3. Results - Home Blood Pressure Monitoring: Recent readings include 181/80, 152/70, and 169/83. - Hearing Test (July 15): Indicated fluid in the ears. Plan - Lisinopril will be increased to twice a day. - Propranolol will be initiated twice a day. - Written instructions for medication changes will be provided to the DUPLICATING MACHINE SERVICER to share with the VNA. - A prescription for extra-large adult pull-ups will be sent. - A bed alarm will be ordered to mitigate fall risk at night. - No referral to an ENT is needed at this time as the patient's hearing has improved with hearing aids. - The patient has declined the influenza vaccine. - Follow up in three months. Discussion Notes I discussed the patient's elevated blood pressure readings with her administrative personal assistant (DUPLICATING MACHINE SERVICER). I advised increasing the lisinopril to twice daily and starting propranolol twice daily to better control her hypertension. I provided written instructions for the DUPLICATING MACHINE SERVICER to give to the visiting nurse to ensure the medication changes are implemented correctly. We discussed the need for extra-large adult pull-ups, which I will order. I will also order a bed alarm as requested for fall prevention. We reviewed the recent hearing evaluation; as the patient's hearing has improved with her aids, we decided to defer an ENT referral at this time. The patient, through her DUPLICATING MACHINE SERVICER, declined the influenza vaccination. I advised a follow-up appointment in three months to reassess her blood pressure and overall status. Patient Instructions - Take Lisinopril two times a day. - Take Propranolol two times a day. - Please show the written instructions for your new medication schedule to the visiting nurse. - We will order extra-large adult pull-ups for you. - A bed alarm will be ordered to help keep you safe at night. - Please return to the clinic for a follow-up visit in three months. Medications: Changed From lisinopril 10 mg PO DAILY 30 days 30 tabs 0RF To lisinopril 10 mg PO BID 180 tabs 0RF 90 days Refilled clonazepam (Klonopin) 0.5 mg PO DAILY PRN 30 tabs 0RF anxiety
[2025-08-25 09:37] VITALS: BP 110/70; PULSE 71; TEMP 36.1; O2SAT 98; BMI 31.2
--- OUTSIDE RECORDS SUMMARY | 2025-08-25 10:30 | XMS_ITS | Clinical Summary ---
Author Organization 175 [facility] Address [address] [place] [address] Phone Care Team Providers Care Airborne Missions Systems Name Role Phone Cheikh Coyne MD Primary Care Provider [phone]- [phone] Allergies Active Allergy Reactions Criticality Noted Date [...] Visit Orthopedic Surgery [facility] 250 175 [facility] [address] [place] [phone] Chacho Farah DPM Primary osteoarthritis of both [...] PM EST Office Visit Orthopedic Surgery - [place] [address] [phone] Chacho Farah, DPM [address] [address] Health Maintenance Due Date Last [...] Insurance [employer] Care Teams Airborne Missions Systems Relationship Specialty Start Date End Date Cheikh Coyne MD [facility] [address] [place] [address] [address] [place] [address] PCP - General 11/28/23
== END 2025-08-25 10:09 | disposition home or self-care (01) ==
LOC: HO.HMCH 09:25
PROVIDERS: PCP Internal Medicine; Visit Provider Internal Medicine
DX: I15.8 Other secondary hypertension (principal)

== ENCOUNTER → 2025-08-25 09:24 | Outpatient (BNVA) | payer OTHER, SELFPAY | PROVIDERS: PCP Internal Medicine; Visit Provider Internal Medicine | DX: I15.8 Other secondary hypertension (principal); R32 Unspecified urinary incontinence; Z79.899 Other long term (current) drug therapy | CPT/HCPCS: 99212 ==

== ENCOUNTER 2025-09-27 14:06 | Outpatient (AMB) | payer MEDICARE, MEDICAID, SELFPAY ==
--- NOTE | 2025-09-27 14:29 | A.OFFPC_ITS ---
Vital Signs 09/27/25 14:34 Height 5 ft 2 in Weight 167 lb BMI 30.5 BP 162/82 H Blood Pressure Location Lt brachial Position Sitting Respiration 22 H Pulse 65 Pulse Source Pulse Oximeter Temp 98.6 F Temp Source Temporal Artery Scan Pulse Oximetry (%) 98 Oxygen Delivery Method Room Air Intake Visit Reasons: high blood pressure Manager Bank Required: No Accompanied by: grand daughter in law- Delma Allergies aspirin Allergy (Intermediate, Verified 09/27/25 14:32) itchy dog dander Allergy (Unknown, Verified 09/27/25 14:32) unknown penicillin G Allergy (Unknown, Verified 09/27/25 14:32) Unknown lisinopril Adverse Reaction (Intermediate, Verified 09/27/25 14:32) Cough Seasonale Allergy (Unknown, Uncoded 08/25/25 09:37) Unknown Medication List - Last Reconciled 09/27/25 by Christi Parnell MD [Adult Pull Ups As directed 5 /day ] atorvastatin 10 mg PO DAILY blood pressure test kit-wrist As directed [Brief As directed] buspirone 10 mg PO BID clonazepam (Klonopin) 0.5 mg PO DAILY PRN diphenhydramine HCl 25 mg PO DAILY 90 days [Ensure drink As directed] [Hospital bed As directed] lisinopril 10 mg PO BID 90 days [Pressure/bed alarm As directed] propranolol 10 mg PO BID 30 days sertraline 50 mg PO DAILY walker without wheels use as directed Tobacco use date assessed: 08/25/25 Dental Screening Dental Screen Date: 07/29/25 HPI HPI Comments History of Present Illness Details Patient is an 89-year-old female presenting for follow up hypertension. She was last seen in clinic on 08/25/2025 during which her hypertension medication regimen was adjusted to lisinopril 10 mg twice a day and propranolol 10 mg twice daily. She is presenting with her [id number]-gf-cng, who reports that patient is compliant with medications. However, states that patient's blood pressure readings at home that are taken by visiting nurse daily continues to be elevated over the past 2 weeks ranging in the 150s to 160s systolic. Denies any symptoms including chest pain, shortness of breath, headaches or vision changes. Medications reviewed and confirmed [facility] Medical History Cognitive disorder Dystrophic nail Anxiety High cholesterol Hypertension Depression Surgical History History of hysterectomy Family History Father No problems noted. Mother No problems noted. Brother No problems noted. Family/Other Mental health disorder Social History Housing: House Alcohol intake: never Patient Tobacco Use Status: Never used Tobacco e-Cigarette/Vaping Use: Never Used Second Hand Smoke Exposure: No service: No Current occupational status: retired Cognitive needs: No Hearing needs: Yes (hearing aide) Vision needs: Yes Questionnaire Thrive Questionnaire Date Thrive assessed: 07/29/25 I am a: Parent/Caregiver What is your living situation today?: I have a steady place to live Within the past 12 months, did the food you bought not last and you didn't have the money to get more?: Never true Within the past 12 months, did you worry whether your food would run out before you got money to buy more?: Never true Do you have trouble paying for medicines?: No Do you have trouble getting transportation to medical appointments?: No Do you have trouble paying your heating and electricity bill?: No Do you have trouble taking care of your child, family member or friend?: No Do you have trouble with day-to-day activities such as bathing, preparing meals, shopping, managing finances, etc.?: Yes Are you currently unemployed and looking for a job?: No Are you interested in more education?: No Please select the resources that you would like help with: None Currently or been in a relationship where the following occur: I choose not to answer THRIVE Score: 0 BARON-7 AMB Questionnaire BARON-7 Date BARON - 7 assessed: 01/13/25 Source: Developed by Drs. Price Tanner, Alma Esquivel, Sukhjinder Clark and colleagues, with an educational bettie from [employer]. Physical exam (Primary Care) Vital Signs: Last Vital Signs Temp 98.6 F 09/27/25 14:34 Pulse 65 09/27/25 14:34 Resp 22 H 09/27/25 14:34 BP 162/82 H 09/27/25 14:34 Pulse Ox 98 09/27/25 14:34 Oxygen Delivery Method Room Air 09/27/25 14:34 General: Well-appearing, alert, oriented ?3, in no acute distress. Cardiovascular: RRR, S1-S2 appreciated, no murmurs, rubs or gallops. Respiratory: Lungs clear to auscultation bilaterally, no wheezes, rales or rhonchi. Abdomen: Soft, nontender, nondistended. Normoactive bowel sounds. BMI result Body Mass Index 30.5 Tobacco/Smoking Status: Tobacco use Status Tobacco use date assessed 08/25/25 09/27/25 14:29 Patient Tobacco Use Status Never used Tobacco 09/27/25 14:29 e-Cigarette/Vaping Use Never Used 09/27/25 14:29 Thrive Assessment: Date of Thrive Assessment Date Thrive assessed 07/29/25 09/27/25 14:29 Currently or been in a relationship where the following occur: I choose not to answer Coding Level of Care Code Est Pt Level 4 (62672) Diagnoses Other secondary hypertension I15.8 Hypertension type: other secondary hypertension High cholesterol E78.00 Assessment & Plan Assessment & Plan (1) Hypertension: Code(s): I10 - Essential (primary) hypertension Category: Medical Qualifiers: Hypertension type: other secondary hypertension Qualified Code(s): I15.8 - Other secondary hypertension Plan: Patient presents for uncontrolled hypertension. On 08/25/2025, her medication regimen was adjusted to lisinopril 10 mg twice daily and propranolol 10 mg twice daily. Patient reports compliance with medication, however her readings at home continues to remain elevated ranging in 150s to 160 systolic. She is asymp tomatic Plan -increase lisinopril to 20 mg twice daily. Patient instructed to take 2 of her current 10 mg tablets twice a day until the supply is finished and a new prescription for lisinopril 20 mg tablets sent to the pharmacy. -obtain blood work to monitor kidney function -continue to monitor blood pressure at home and keep a log of the readings -follow up with Dr Coyne as scheduled in November 2025 -patient advised to present to the emergency department if at any point she experiences sudden weakness, numbness, tingling, severe headache or chest pain (2) High cholesterol: Code(s): E78.00 - Pure hypercholesterolemia, unspecified Category: Medical Plan: On atorvastatin 10 mg daily, obtain lipid panel Orders: Orders Comprehensive Met. Panel Today Z00.00 - Encounter for general adult medical examination without abnormal findings Lipid Panel with Reflex Today E78.5 - Hyperlipidemia, unspecified Medications: New lisinopril 20 mg PO BID 60 tabs 0RF 30 days Discontinued lisinopril Discontinued Reason: Ancillary Entered New Order 10 mg PO BID 90 days 180 tabs 0RF
[2025-09-27 14:34] VITALS: BP 162/82; PULSE 65; RESP 22; TEMP 37; O2SAT 98; BMI 30.5
--- OUTSIDE RECORDS SUMMARY | 2025-09-27 20:08 | XMS_ITS | Clinical Summary ---
Author Organization 175 [facility] Address [address] [place] [address] Phone Care Team Providers Care Or Scrub Tech Name Role Phone Cheikh Coyne MD Primary Care Provider +1- [phone] Allergies Active Allergy Reactions Criticality Noted Date [...] Encounters Date Type Department Care Team Description 09/13/2025 1:15 PM EST Office Visit Orthopedic Surgery [facility] [address] [phone] Chacho Farah DPM Primary osteoarthritis of both feet (Primary Dx); Bilateral foot pain; Bilateral femoral artery stenosis (CMS/HCC V24); Dermatophytosis of nail; Pain in toe of right foot; Metatarsalgia of both feet; Corns and callosities; Pain in toe of left foot from Last 3 Months Social History Tobacco [...] Care Team (Late st Contact Info) Description 11/03/2025 1:15 PM EST Office Visit Orthopedic Surgery - [place] [address] [phone] Chacho Farah, DPM [address] [phone] Health Maintenance Due Date Last [...] on patient's age to complete this topic Procedures Procedure Name Priority Date/Time Associated Diagnosis Comments XR FOOT 3+ VIEWS BILAT Routine 09/13/2025 1:10 PM EST Bilateral foot pain from Last 3 Months Results * XR Foot 3+ Views bilat (09/13/2025 1:10 PM EST) Anatomical Region Laterality Modality Lower Extremities, Foot Bilateral Computed Radiography Narrative 09/13/2025 6:41 PM EST Right foot 3 views No fracture. No radiopaque foreign joint spaces Arthritis moderate severe Foot position Pes Cavus with Talus navicular decreased kites angle increased calcaneal inclination posterior displaced symes line talus navicular joint to calcaneal cuboid joint Left foot 3 views No fracture. No radiopaque foreign joint spaces Arthritis moderate severe Foot position Pes Cavus with Talus navicular decreased kites angle increased calcaneal inclination posterior displaced symes line talus navicular joint to calcaneal cuboid joint Chacho Farah DPM IMG XR PROCEDURES Final R esult from Last 3 Months Insurance [employer] Care Teams Or Scrub Tech Relationship Specialty Start Date End Date Cheihk Coyne MD [facility] [address] [place] [address] PCP - General 11/28/23
== END 2025-09-27 15:30 | disposition home or self-care (01) ==
LOC: HO.HMCH 14:08
PROVIDERS: PCP Internal Medicine; Visit Provider Student in an Organized Health Care Education/Training Program
DX: I15.8 Other secondary hypertension (principal); E78.00 Pure hypercholesterolemia, unspecified

== ENCOUNTER → 2025-09-27 14:06 | Outpatient (BNVA) | payer OTHER, SELFPAY | PROVIDERS: PCP Internal Medicine; Visit Provider Student in an Organized Health Care Education/Training Program | DX: I15.8 Other secondary hypertension (principal); E78.00 Pure hypercholesterolemia, unspecified; Z79.899 Other long term (current) drug therapy | CPT/HCPCS: 99212 ==

== ENCOUNTER 2025-09-29 08:16 | Outpatient (REF) | payer OTHER, SELFPAY ==
[2025-09-29 09:39] LABS: Alanine Aminotransferase 21 U/L (0-31); Albumin Level 4.2 g/dL (3.5-5.0); Alkaline Phosphatase 146 U/L (39-117); Anion Gap 9 (12-20); Aspartate Amino Transferase 30 U/L (5-31); Blood Urea Nitrogen 9 mg/dL (9-16); Calcium 9.4 mg/dL (8.4-10.2); Carbon Dioxide 30 mmol/L (22-29); Chloride 100 mmol/L (96-108); Cholesterol 127 mg/dL (<200); Estimated Glomerular Filt Rate > 60; HDL Cholesterol 61 mg/dL (>40); Potassium 3.8 mmol/L (3.3-5.1); Sodium 135 mmol/L (135-145); Total Protein 8.0 g/dL (6.5-8.0); Triglycerides 63 mg/dL (<150)
[2025-09-29 10:23] LABS: Reflex LDLD? No
== END 2025-09-29 08:17 ==
LOC: HO.LAB 08:16
PROVIDERS: PCP Internal Medicine; Visit Provider Student in an Organized Health Care Education/Training Program
DX: Z00.00 Encounter for general adult medical examination without abnormal findings (principal); E78.5 Hyperlipidemia, unspecified
CPT/HCPCS: 36415; 80053; 80061